=== PATIENT | male | born 1955 | race Caucasian/White ===

== ENCOUNTER 2016-03-10 00:31 | Emergency (ER) | payer SELFPAY ==
[~2016-03-10] VITALS: Ht 165.1 cm; Wt 81.8 kg
[2016-03-10] MEDS ORDERED: AMLO-512 PO (00:42)
[2016-03-10] MEDS ORDERED: METO25 PO (00:42)
[2016-03-10] MEDS ORDERED: GLIP5TAB11 PO (00:42)
[2016-03-10] MEDS ORDERED: METF850T2 PO (00:42)
[2016-03-10] MEDS ORDERED: LISI-662 PO (00:42)
[2016-03-10] MEDS ORDERED: LOVA20 PO (00:42)
[2016-03-10] MEDS ORDERED: LEVALBUTEROL HCL 1.25 MG/0.5 ML NEB SOLUTION NEB ONE (00:45)
[2016-03-10] MEDS ORDERED: IPRATROPIUM BROMIDE 0.5 MG/2.5 ML NEB SOLUTION NEB ONE (00:45)
[2016-03-10 00:55] LABS: GLUCOSE,POINT OF CARE 193 MG/DL (70-110)
[2016-03-10 01:07] LABS: BASOPHILS % (AUTO) 0.5 % (0.0-2.0); EOSINOPHILS % (AUTO) 2.4 % (1.0-6.0); HEMATOCRIT 39.4 % (41-53); HEMOGLOBIN 13.3 g/dL (13.5-17.5); LYMPHOCYTES # (AUTO) 2.4 K/uL (1.0-4.8); LYMPHOCYTES % (AUTO) 29.8 % (22.0-44.0); MEAN CORPUSCULAR HEMOGLOBIN 30.8 pg (26.0-34.0); MEAN CORPUSCULAR HGB CONC 33.8 G/dL (31.0-37.0); MEAN CORPUSCULAR VOLUME 91 fL (80-100); MONOCYTES # (AUTO) 0.4 K/uL (0.1-1.0); MONOCYTES % (AUTO) 5.3 % (2.0-9.0); NEUTROPHILS # (AUTO) 4.9 K/uL (1.8-7.7); PLATELET COUNT (AUTO) 201 K/uL (150-450); RED BLOOD CELL COUNT(AUTO) 4.33 MIL/uL (4.50-5.90); RED CELL DISTRIBUTION WIDTH 13.1 % (11.5-14.5); WHITE BLOOD COUNT (AUTO) 7.9 K/uL (4.5-11.0)
[2016-03-10 01:11] LABS: ANION GAP 7 mmol/L (8-16); CARBON DIOXIDE 28 mmol/L (22-29); CHLORIDE 101 mmol/L (98-107); CREATININE 1.13 mg/dL (0.60-1.30); GLOMERULAR FILTR. RATE CALC > 60 mL/min (>60); POTASSIUM 4.5 mmol/L (3.5-5.1); SODIUM SERUM 136 mmol/L (136-145); UREA NITROGEN, BLOOD 31 mg/dL (7-18)
[2016-03-10 01:15] LABS: PROTHROMBIN TIME 10.4 SEC (9.4-11.6)
[2016-03-10 01:16] LABS: ALANINE AMINOTRANSFERASE 30 U/L (12-78); ALBUMIN 3.5 g/dL (3.4-5.0); ASPARTATE AMINOTRANSFERASE 18 U/L (15-37); BILIRUBIN,TOTAL 0.3 mg/dL (0.1-1.0); TOTAL PROTEIN, SERUM 6.8 g/dL (6.4-8.2)
[2016-03-10] MEDS ORDERED: FUROSEMIDE 40 MG/4 ML VIAL IVP ONE (01:30)
[2016-03-10 03:13] VITALS: BP 150/70
[2016-06-21] MEDS ORDERED: SIMV-260 PO (12:42)
== END 2016-03-10 03:18 | disposition home or self-care (01) ==
LOC: EMS 00:34
DX: I11.0 Hypertensive heart disease with heart failure (principal); I50.9 Heart failure, unspecified; E11.9 Type 2 diabetes mellitus without complications; Z95.1 Presence of aortocoronary bypass graft
CPT/HCPCS: 36415; 71010; 80053; 82962; 83880; 84484; 85025; 85610; 93005; 94640; 96374; 99285; J1940; Z7610

== ENCOUNTER 2016-05-19 01:05 | Inpatient (IN) | payer SELFPAY ==
[~2016-05-19] VITALS: Ht 167.6 cm; Wt 79.5 kg
[~2016-05-19 01:05] MED LIST: AMLO-512 PO; GLIP5TAB11 PO; LISI-662 PO; LOVA20 PO; METF850T2 PO; METO25 PO
[2016-05-19] MEDS ORDERED: OXYGEN THERAPY IH SCH ×2 (01:15→08:00)
[2016-05-19 01:26] LABS: BASOPHILS % (AUTO) 0.6 % (0.0-2.0); EOSINOPHILS % (AUTO) 1.9 % (1.0-6.0); HEMATOCRIT 42.7 % (41-53); HEMOGLOBIN 13.9 g/dL (13.5-17.5); LYMPHOCYTES # (AUTO) 6.6 K/uL (1.0-4.8); LYMPHOCYTES % (AUTO) 44.2 % (22.0-44.0); MEAN CORPUSCULAR HEMOGLOBIN 30.2 pg (26.0-34.0); MEAN CORPUSCULAR HGB CONC 32.5 G/dL (31.0-37.0); MEAN CORPUSCULAR VOLUME 93 fL (80-100); MONOCYTES % (AUTO) 6.4 % (2.0-9.0); NEUTROPHILS % (AUTO) 46.9 % (40.0-70.0); PLATELET COUNT (AUTO) 229 K/uL (150-450); RED CELL DISTRIBUTION WIDTH 14.3 % (11.5-14.5)
[2016-05-19 01:29] LABS: ABG A-A DIFF O2 122.8 mmHg (10-20.0); ABG BASE EXCESS -3.1 mmol/L (-2.0-3.0); ABG HCO3 21.4 mmol/L (22.0-26.0); ABG OXYHEMOGLOBIN 95.1 % (94.0-100.0); ABG PCO2 53 mmHg (35-45); ABG PH 7.271 (7.35-7.450); ALLEN TEST, BLOOD GAS Positive; TEMPERATURE, FAHRENHEIT, BG 98.6 FAHREN (96.0-98.6)
[2016-05-19 01:30] LABS: IPAP, BG 16 cm H2O
[2016-05-19 01:47] LABS: B-TYPE NATRIURETIC PEPTIDE 397 pg/mL (0-100)
[2016-05-19 01:58] LABS: ANION GAP 12 mmol/L (8-16); CALCIUM, TOTAL 8.4 mg/dL (8.8-10.5); CARBON DIOXIDE 24 mmol/L (22-29); CHLORIDE 98 mmol/L (98-107); CREATININE 1.24 mg/dL (0.60-1.30); GLOMERULAR FILTR. RATE CALC 59 mL/min (>60); POTASSIUM 3.4 mmol/L (3.5-5.1); SODIUM SERUM 134 mmol/L (136-145); UREA NITROGEN, BLOOD 23 mg/dL (7-18)
[2016-05-19 02:03] LABS: ALANINE AMINOTRANSFERASE 33 U/L (12-78); ALBUMIN 3.6 g/dL (3.4-5.0); ASPARTATE AMINOTRANSFERASE 32 U/L (15-37); BILIRUBIN,TOTAL 0.4 mg/dL (0.1-1.0); TOTAL PROTEIN, SERUM 7.1 g/dL (6.4-8.2)
[2016-05-19 02:15] LABS: LACTIC ACID 3.5 mmol/L (0.4-2.0)
[2016-05-19] MEDS ORDERED: 0.9% SODIUM CHLORIDE 10 ML SYRINGE IVP PRN (02:45)
[2016-05-19] MEDS ORDERED: DIGOXIN 250 MCG/ML 2 ML AMP IVP ONE (02:45)
[2016-05-19] MEDS ORDERED: ASPIRIN 325 MG TABLET PO ONE (02:45)
[2016-05-19] MEDS ORDERED: ONDANSETRON HCL 4 MG/2 ML VIAL IVP PRN (02:45)
[2016-05-19] MEDS ORDERED: FUROSEMIDE 40 MG/4 ML VIAL IVP ONE ×2 (02:45→03:00)
[2016-05-19] MEDS ORDERED: ACETAMINOPHEN 325 MG TABLET PO PRN ×2 (02:45→06:45)
[2016-05-19 03:18] LABS: REFLEX LACTIC ACID? YES YES
[2016-05-19] MEDS ORDERED: IPRATROPIUM BROMIDE 0.5 MG/2.5 ML NEB SOLUTION NEB PRN (06:45)
[2016-05-19] MEDS ORDERED: BISACODYL 10 MG RECTAL RECTAL SUPPOSITORY PR PRN (06:45)
[2016-05-19] MEDS ORDERED: MAGNESIUM SULFATE 4 GM/WATER 100 ML IV PRN (06:45)
[2016-05-19] MEDS ORDERED: HYDROCODONE/ACETAMINOPHEN 5-325 MG TABLET PO PRN (06:45)
[2016-05-19] MEDS ORDERED: MORPHINE SULFATE 2 MG/ML SYRINGE IVP PRN (06:45)
[2016-05-19] MEDS ORDERED: MAGNESIUM SULFATE 2 GM in DEXTROSE 5%-WATER 50 ML IV PRN (06:45)
[2016-05-19] MEDS ORDERED: POTASSIUM CHLORIDE 20 MEQ ER TABLET PO PRN ×2 (06:45)
[2016-05-19] MEDS ORDERED: DEXTROSE 50%-WATER 25 GM/50 ML SYRINGE IVP PRN (06:45)
[2016-05-19] MEDS ORDERED: ALBUTEROL SULFATE 2.5 MG/0.5 ML NEB SOLUTION NEB PRN (06:45)
[2016-05-19] MEDS ORDERED: MAGNESIUM HYDROXIDE SUSPENSION 30 ML UDCUP PO PRN (06:45)
[2016-05-19] MEDS ORDERED: POTASSIUM CHL 10 MEQ/WATER 50 ML IV PRN (06:45)
[2016-05-19] MEDS ORDERED: ZOLPIDEM TARTRATE 5 MG TABLET PO PRN (06:45)
[2016-05-19] MEDS: AmLODIPine BESYLATE 10 MG TABLET PO SCH (08:34)
[2016-05-19] MEDS: HEPARIN SODIUM,PORCINE 5,000 UNITS/ML VIAL SQ SCH ×2 (08:34→20:58)
[2016-05-19] MEDS: MetFORMIN HCL 850 MG TABLET PO SCH ×3 (08:34→18:00)
[2016-05-19] MEDS: METOPROLOL TARTRATE 25 MG TABLET PO SCH ×2 (08:34→20:57)
[2016-05-19] MEDS: GlipiZIDE 5 MG TABLET PO SCH (08:34)
[2016-05-19] MEDS: INSULIN ASPART 100 UNITS/ML SQ PRN ×2 (08:35→11:42)
[2016-05-19 08:36] LABS: GLUCOSE,POINT OF CARE 196 MG/DL (70-110)
[2016-05-19 10:04] LABS: APPEARANCE,URINE CLEAR (CLEAR); GLUCOSE, URINE (UA) NEGATIVE (NEGATIVE); KETONES,URINE NEGATIVE (NEGATIVE); LEUKOCYTE ESTERASE ,URINE NEGATIVE (NEGATIVE); OCCULT BLOOD,URINE TRACE (NEGATIVE); PROTEIN,URINE TRACE (NEGATIVE)
[2016-05-19 10:14] LABS: RBC,URINE 0-2 /HPF (0-2); WBC,URINE 0-2 /HPF (0-5)
[2016-05-19 10:15] LABS: SQUAMOUS EPITHELIAL CELL,UR Few /LPF (None Seen)
[2016-05-19 11:43] LABS: GLUCOSE,POINT OF CARE 172 MG/DL (70-110)
[2016-05-19 12:12] LABS: ANION GAP 10 mmol/L (8-16); CALCIUM, TOTAL 8.6 mg/dL (8.8-10.5); CARBON DIOXIDE 28 mmol/L (22-29); CHLORIDE 99 mmol/L (98-107); CREATININE 1.15 mg/dL (0.60-1.30); GLOMERULAR FILTR. RATE CALC > 60 mL/min (>60); POTASSIUM 3.9 mmol/L (3.5-5.1); SODIUM SERUM 137 mmol/L (136-145); UREA NITROGEN, BLOOD 25 mg/dL (7-18)
[2016-05-19 12:57] VITALS: BP 144/81
[2016-05-19 15:14] VITALS: BP 120/86
[2016-05-19] MEDS: MAGNESIUM OXIDE 400 MG TABLET PO PRN ×2 (18:00→22:04)
[2016-05-19] MEDS ORDERED: PNEUMOCOCCAL VACCINE POLYVALENT 0.5 ML VIAL [PPSV23] IM ONE (19:15)
[2016-05-19 19:47] VITALS: BP 140/71
[2016-05-19] MEDS: LOVASTATIN 20 MG TABLET PO SCH (20:57)
[2016-05-19 23:51] VITALS: BP 137/81
[2016-05-20] MEDS: MAGNESIUM OXIDE 400 MG TABLET PO PRN (03:23)
[2016-05-20 04:56] VITALS: BP 121/74
[2016-05-20 06:23] LABS: BASOPHILS % (AUTO) 0.5 % (0.0-2.0); EOSINOPHILS % (AUTO) 2.2 % (1.0-6.0); HEMATOCRIT 37.6 % (41-53); HEMOGLOBIN 12.4 g/dL (13.5-17.5); LYMPHOCYTES # (AUTO) 2.9 K/uL (1.0-4.8); LYMPHOCYTES % (AUTO) 39.6 % (22.0-44.0); MEAN CORPUSCULAR HEMOGLOBIN 30.4 pg (26.0-34.0); MEAN CORPUSCULAR HGB CONC 32.9 G/dL (31.0-37.0); MEAN CORPUSCULAR VOLUME 92 fL (80-100); MONOCYTES # (AUTO) 0.5 K/uL (0.1-1.0); MONOCYTES % (AUTO) 7.5 % (2.0-9.0); NEUTROPHILS # (AUTO) 3.7 K/uL (1.8-7.7); NEUTROPHILS % (AUTO) 50.2 % (40.0-70.0); PLATELET COUNT (AUTO) 172 K/uL (150-450); RED BLOOD CELL COUNT(AUTO) 4.07 MIL/uL (4.50-5.90); RED CELL DISTRIBUTION WIDTH 14.2 % (11.5-14.5); WHITE BLOOD COUNT (AUTO) 7.4 K/uL (4.5-11.0)
[2016-05-20 06:28] LABS: HEMOGLOBIN A1C 8.1 % (4.5-6.2)
[2016-05-20] MEDS: GlipiZIDE 5 MG TABLET PO SCH (06:47)
[2016-05-20 06:52] LABS: ALANINE AMINOTRANSFERASE 25 U/L (12-78); ALBUMIN 3.1 g/dL (3.4-5.0); ANION GAP 6 mmol/L (8-16); ASPARTATE AMINOTRANSFERASE 23 U/L (15-37); BILIRUBIN,TOTAL 0.4 mg/dL (0.1-1.0); CALCIUM, TOTAL 8.5 mg/dL (8.8-10.5); CARBON DIOXIDE 29 mmol/L (22-29); CHLORIDE 106 mmol/L (98-107); CHOL/HDL RATIO 3.9 (4.2-7.3); CREATININE 0.95 mg/dL (0.60-1.30); GLOMERULAR FILTR. RATE CALC > 60 mL/min (>60); PHOSPHORUS 3.6 mg/dL (2.5-4.9); POTASSIUM 4.2 mmol/L (3.5-5.1); SODIUM SERUM 141 mmol/L (136-145); THYROID STIMULATING HORMONE 2.06 uIU/mL (0.36-3.74); UREA NITROGEN, BLOOD 20 mg/dL (7-18)
[2016-05-20 07:08] VITALS: BP 128/74
[2016-05-20 07:26] LABS: GLUCOSE,POINT OF CARE 124 MG/DL (70-110)
[2016-05-20 07:26] LABS: GLUCOSE,POINT OF CARE 102 MG/DL (70-110)
[2016-05-20] MEDS: MetFORMIN HCL 850 MG TABLET PO SCH ×3 (08:04→18:00)
[2016-05-20] MEDS: AmLODIPine BESYLATE 10 MG TABLET PO SCH (08:04)
[2016-05-20] MEDS: METOPROLOL TARTRATE 25 MG TABLET PO SCH ×2 (08:04→20:46)
[2016-05-20] MEDS: HEPARIN SODIUM,PORCINE 5,000 UNITS/ML VIAL SQ SCH ×2 (08:05→20:46)
[2016-05-20 11:23] VITALS: BP 137/82
[2016-05-20 12:12] LABS: GLUCOSE,POINT OF CARE 74 MG/DL (70-110)
[2016-05-20 15:27] VITALS: BP 131/69
[2016-05-20 19:56] VITALS: BP 151/80
[2016-05-20] MEDS: LOVASTATIN 20 MG TABLET PO SCH (20:46)
[2016-05-20 23:22] VITALS: BP 145/78
[2016-05-21] VITALS (11 sets, daily range): BP systolic 132–188; BP diastolic 66–98
[2016-05-21] MEDS: GlipiZIDE 5 MG TABLET PO SCH (06:20)
[2016-05-21 07:22] LABS: GLUCOSE,POINT OF CARE 212 MG/DL (70-110)
[2016-05-21 07:22] LABS: GLUCOSE,POINT OF CARE 135 MG/DL (70-110)
[2016-05-21 07:31] LABS: GLUCOSE,POINT OF CARE 135 MG/DL (70-110)
[2016-05-21] MEDS: MetFORMIN HCL 850 MG TABLET PO SCH (08:00)
[2016-05-21] MEDS ORDERED: VERAPAMIL HCL 2.5 MG/ML 2 ML VIAL ONE (08:21)
[2016-05-21] MEDS ORDERED: FentaNYL CITRATE-PF 100 MCG/2 ML VIAL ONE ×2 (08:21→10:31)
[2016-05-21] MEDS ORDERED: MIDAZOLAM HCL 2 MG/2 ML VIAL ONE ×2 (08:21→10:32)
[2016-05-21] MEDS ORDERED: SODIUM BICARBONATE 50 MEQ/50 ML VIAL ONE (08:22)
[2016-05-21] MEDS ORDERED: LIDOCAINE HCL/PF 1% 30 ML VIAL ONE (08:22)
[2016-05-21] MEDS ORDERED: NITROGLYCERIN 50 MG/D5% WATER 250 ML ONE (08:22)
[2016-05-21] MEDS ORDERED: HEPARIN SODIUM,PORCINE 1,000 UNITS/ML 10 ML VIAL ONE (08:22)
[2016-05-21] MEDS ORDERED: HEPARIN SODIUM 1000 UNITS/NS 1,000 ML ONE (08:23)
[2016-05-21] MEDS: METOPROLOL TARTRATE 25 MG TABLET PO SCH ×2 (08:23→21:03)
[2016-05-21] MEDS ORDERED: IOHEXOL 300 MG/ML 150 ML VIAL ONE ×2 (08:23→09:26)
[2016-05-21] MEDS: AmLODIPine BESYLATE 10 MG TABLET PO SCH (08:23)
[2016-05-21] MEDS: HEPARIN SODIUM,PORCINE 5,000 UNITS/ML VIAL SQ SCH ×2 (08:24→21:04)
[2016-05-21] MEDS ORDERED: SODIUM CHLORIDE 0.9% 500 ML IV ONE (09:05)
[2016-05-21] MEDS ORDERED: LIDOCAINE 1% 30 ML/SOD BICARB 8.4% 4 ML SQ ONE (09:11)
[2016-05-21] MEDS ORDERED: HEPARIN SODIUM 2,000 UNITS in HEPARIN SODIUM 1000 UNITS/NS 1,000 ML IARTER ONE (09:11)
[2016-05-21] MEDS ORDERED: IOHEXOL 300 MG/ML 150 ML VIAL IARTER ONE ×2 (09:12)
[2016-05-21] MEDS ORDERED: IOHEXOL 300 MG/ML 100 ML VIAL ICOR ONE (09:12)
[2016-05-21] MEDS ORDERED: IOHEXOL 300 MG/ML 100 ML VIAL ONE ×2 (09:15→10:10)
[2016-05-21] MEDS ORDERED: IOHEXOL 300 MG/ML 50 ML VIAL ONE (09:35)
[2016-05-21] MEDS ORDERED: HEPARIN SODIUM,PORCINE 5,000 UNITS/ML VIAL IVP ONE (09:37)
[2016-05-21] MEDS ORDERED: TICAGRELOR 90 MG TABLET PO ONE (09:39)
[2016-05-21] MEDS ORDERED: ASPIRIN 81 MG CHEWABLE TABLET ONE (09:40)
[2016-05-21] MEDS ORDERED: TICAGRELOR 90 MG TABLET ONE (09:40)
[2016-05-21] MEDS ORDERED: IOHEXOL 300 MG/ML 50 ML VIAL ICOR ONE (09:41)
[2016-05-21] MEDS ORDERED: HEPARIN SODIUM 1000 UNITS/NS 500 ML ONE ×3 (09:42→11:09)
[2016-05-21] MEDS ORDERED: ASPIRIN 81 MG CHEWABLE TABLET PO ONE (09:45)
[2016-05-21] MEDS ORDERED: FUROSEMIDE 40 MG/4 ML VIAL ONE ×2 (09:55→10:01)
[2016-05-21] MEDS ORDERED: FUROSEMIDE 40 MG/4 ML VIAL IVP ONE ×2 (10:00→10:53)
[2016-05-21] MEDS ORDERED: ONDANSETRON HCL 4 MG/2 ML VIAL IVP ONE (10:04)
[2016-05-21] MEDS ORDERED: ONDANSETRON HCL 4 MG/2 ML VIAL ONE (10:07)
[2016-05-21] MEDS ORDERED: NITROGLYCERIN/D5W 50 MG/250 ML IV BOTTLE ICOR ONE (10:11)
[2016-05-21] MEDS ORDERED: VERAPAMIL HCL 2.5 MG/ML 2 ML VIAL ICOR ONE (10:11)
[2016-05-21] MEDS: CARVEDILOL 6.25 MG TABLET PO SCH ×2 (13:01→21:03)
[2016-05-21] MEDS: LISINOPRIL 20 MG TABLET PO SCH (13:01)
[2016-05-21 13:08] LABS: CREATINE KINASE MB 2.5 ng/mL (0-5); CREATINE KINASE, TOTAL 86 U/L (39-308)
[2016-05-21] MEDS ORDERED: HydrALAZINE HCL 20 MG/ML VIAL IVP PRN (14:45)
[2016-05-21 17:42] LABS: GLUCOSE COMMENT 1 Received Meds; GLUCOSE,POINT OF CARE 163 MG/DL (70-110)
[2016-05-21] MEDS: INSULIN ASPART 100 UNITS/ML SQ PRN (17:48)
[2016-05-21] MEDS: FUROSEMIDE 40 MG/4 ML VIAL IVP SCH (21:04)
[2016-05-21 22:41] LABS: GLUCOSE COMMENT 1 Received Meds; GLUCOSE,POINT OF CARE 138 MG/DL (70-110)
[2016-05-21] MEDS: LOVASTATIN 20 MG TABLET PO SCH (22:41)
[2016-05-21] MEDS: TICAGRELOR 90 MG TABLET PO SCH (22:41)
[2016-05-22] VITALS: BP 120/58
[2016-05-22 04:00] VITALS: BP 121/61
[2016-05-22] MEDS: GlipiZIDE 5 MG TABLET PO SCH (06:40)
[2016-05-22] MEDS: INSULIN ASPART 100 UNITS/ML SQ PRN ×3 (06:41→21:11)
[2016-05-22 08:00] VITALS: BP 116/61
[2016-05-22] MEDS: FUROSEMIDE 40 MG/4 ML VIAL IVP SCH ×2 (09:30→20:50)
[2016-05-22] MEDS: HEPARIN SODIUM,PORCINE 5,000 UNITS/ML VIAL SQ SCH ×2 (09:30→20:51)
[2016-05-22] MEDS: TICAGRELOR 90 MG TABLET PO SCH ×2 (09:31→20:50)
[2016-05-22] MEDS: ASPIRIN 81 MG CHEWABLE TABLET PO SCH (09:31)
[2016-05-22] MEDS: CARVEDILOL 6.25 MG TABLET PO SCH ×2 (09:31→20:50)
[2016-05-22] MEDS: METOPROLOL TARTRATE 25 MG TABLET PO SCH ×2 (09:31→20:50)
[2016-05-22] MEDS: LISINOPRIL 20 MG TABLET PO SCH (09:31)
[2016-05-22] MEDS: AmLODIPine BESYLATE 10 MG TABLET PO SCH (09:34)
[2016-05-22 09:43] LABS: POTASSIUM 4.1 mmol/L (3.5-5.1)
[2016-05-22 10:02] LABS: GLUCOSE COMMENT 1 Received Meds; GLUCOSE,POINT OF CARE 210 MG/DL (70-110)
[2016-05-22] MEDS ORDERED: 0.9% SODIUM CHLORIDE 10 ML SYRINGE IVP PRN (10:45)
[2016-05-22 12:00] VITALS: BP 149/83
[2016-05-22 16:00] VITALS: BP 110/71
[2016-05-22 17:27] LABS: GLUCOSE COMMENT 1 Received Meds; GLUCOSE,POINT OF CARE 214 MG/DL (70-110)
[2016-05-22 20:00] VITALS: BP 156/85
[2016-05-22] MEDS: LOVASTATIN 20 MG TABLET PO SCH (20:50)
[2016-05-23] VITALS: BP 105/54
[2016-05-23 04:00] VITALS: BP 116/63
[2016-05-23 04:37] LABS: GLUCOSE,POINT OF CARE 257 MG/DL (70-110)
[2016-05-23 04:37] LABS: GLUCOSE,POINT OF CARE 110 MG/DL (70-110)
[2016-05-23] MEDS: GlipiZIDE 5 MG TABLET PO SCH (06:35)
[2016-05-23] MEDS: INSULIN ASPART 100 UNITS/ML SQ PRN (06:37)
[2016-05-23 06:47] LABS: GLUCOSE COMMENT 1 Received Meds; GLUCOSE,POINT OF CARE 145 MG/DL (70-110)
[2016-05-23 08:00] VITALS: BP 112/75
[2016-05-23] MEDS: HEPARIN SODIUM,PORCINE 5,000 UNITS/ML VIAL SQ SCH (08:51)
[2016-05-23] MEDS: FUROSEMIDE 40 MG/4 ML VIAL IVP SCH (08:51)
[2016-05-23] MEDS: TICAGRELOR 90 MG TABLET PO SCH (08:52)
[2016-05-23] MEDS: AmLODIPine BESYLATE 10 MG TABLET PO SCH (08:52)
[2016-05-23] MEDS: ASPIRIN 81 MG CHEWABLE TABLET PO SCH (08:52)
[2016-05-23] MEDS: LISINOPRIL 20 MG TABLET PO SCH (08:52)
[2016-05-23] MEDS: METOPROLOL TARTRATE 25 MG TABLET PO SCH (08:53)
[2016-05-23] MEDS: CARVEDILOL 6.25 MG TABLET PO SCH (08:53)
[2016-05-23 09:17] LABS: GLUCOSE,POINT OF CARE 275 MG/DL (70-110)
[2016-05-23] MEDS ORDERED: AMIL5TAB8 PO (09:54)
[2016-06-21] MEDS ORDERED: SIMV-260 PO (12:42)
== END 2016-05-23 11:10 | disposition home or self-care (01) | DRG 853 ==
LOC: EMS 01:06 → 5N 11:11 → ICU 05-21 10:46
PROVIDERS: ADMIT Internal Medicine; ATTEND Internal Medicine
PROC: 3E0234Z Introduction of Serum, Toxoid and Vaccine into Muscle, Percutaneous Approach (ICD-10-PCS; 2016-05-19)
PROC: 5A09357 Assistance with Respiratory Ventilation, Less than 24 Consecutive Hours, Continuous Positive Airway Pressure (ICD-10-PCS; 2016-05-19)
PROC: 027137Z Dilation of Coronary Artery, Two Arteries with Four or More Drug-eluting Intraluminal Devices, Percutaneous Approach (ICD-10-PCS; principal; 2016-05-21)
PROC: 4A023N7 Measurement of Cardiac Sampling and Pressure, Left Heart, Percutaneous Approach (ICD-10-PCS; 2016-05-21)
PROC: B2111ZZ Fluoroscopy of Multiple Coronary Arteries using Low Osmolar Contrast (ICD-10-PCS; 2016-05-21)
PROC: B2181ZZ Fluoroscopy of Left Internal Mammary Bypass Graft using Low Osmolar Contrast (ICD-10-PCS; 2016-05-21)
PROC: B2131ZZ Fluoroscopy of Multiple Coronary Artery Bypass Grafts using Low Osmolar Contrast (ICD-10-PCS; 2016-05-21)
PROC: B2151ZZ Fluoroscopy of Left Heart using Low Osmolar Contrast (ICD-10-PCS; 2016-05-21)
DX: A41.9 Sepsis, unspecified organism (principal); J96.01 Acute respiratory failure with hypoxia; I21.4 Non-ST elevation (NSTEMI) myocardial infarction; E87.1 Hypo-osmolality and hyponatremia; I25.810 Atherosclerosis of coronary artery bypass graft(s) without angina pectoris; Y90.0 Blood alcohol level of less than 20 mg/100 ml; I11.0 Hypertensive heart disease with heart failure; I50.9 Heart failure, unspecified; I44.7 Left bundle-branch block, unspecified; E11.65 Type 2 diabetes mellitus with hyperglycemia; I25.5 Ischemic cardiomyopathy; E78.5 Hyperlipidemia, unspecified; E83.51 Hypocalcemia; E87.6 Hypokalemia; F10.10 Alcohol abuse, uncomplicated; I48.0 Paroxysmal atrial fibrillation; Z79.84 Long term (current) use of oral hypoglycemic drugs; Z79.899 Other long term (current) drug therapy; Z95.1 Presence of aortocoronary bypass graft; Z71.41 Alcohol abuse counseling and surveillance of alcoholic; Z23 Encounter for immunization
CPT/HCPCS: 82306; 82805; 82962; 83036; 83605; 83735; 84100; 84132; 84443; 87040; 87081; 92920; 92921; 92928; 92981; 93005; 93306; 93459; 93567; 94660; 99285; G0480; J0360; J1160; J1644; J1815; J1940; J2250; J2405; J3010; J3490; Q9967

== ENCOUNTER 2016-05-26 13:53 | Inpatient (IN) | payer SELFPAY ==
[~2016-05-26] VITALS: Ht 167.6 cm; Wt 75.9 kg
[~2016-05-26 13:53] MED LIST changes: +AMIL5TAB8 PO
[2016-05-26 16:18] LABS: BASOPHILS % (AUTO) 0.2 % (0.0-2.0); EOSINOPHILS % (AUTO) 0.7 % (1.0-6.0); HEMATOCRIT 41.5 % (41-53); HEMOGLOBIN 13.8 g/dL (13.5-17.5); LYMPHOCYTES # (AUTO) 1.1 K/uL (1.0-4.8); LYMPHOCYTES % (AUTO) 11.5 % (22.0-44.0); MEAN CORPUSCULAR HEMOGLOBIN 30.4 pg (26.0-34.0); MEAN CORPUSCULAR HGB CONC 33.2 G/dL (31.0-37.0); MEAN CORPUSCULAR VOLUME 92 fL (80-100); MONOCYTES # (AUTO) 0.3 K/uL (0.1-1.0); MONOCYTES % (AUTO) 3.6 % (2.0-9.0); NEUTROPHILS # (AUTO) 7.8 K/uL (1.8-7.7); PLATELET COUNT (AUTO) 252 K/uL (150-450); RED BLOOD CELL COUNT(AUTO) 4.53 MIL/uL (4.50-5.90); RED CELL DISTRIBUTION WIDTH 13.7 % (11.5-14.5); WHITE BLOOD COUNT (AUTO) 9.3 K/uL (4.5-11.0)
[2016-05-26 16:23] LABS: INR 0.9 (0.9-1.1)
[2016-05-26 16:27] LABS: ANION GAP 10 mmol/L (8-16); CALCIUM, TOTAL 9.2 mg/dL (8.8-10.5); CARBON DIOXIDE 27 mmol/L (22-29); CHLORIDE 98 mmol/L (98-107); GLOMERULAR FILTR. RATE CALC > 60 mL/min (>60); SODIUM SERUM 135 mmol/L (136-145); UREA NITROGEN, BLOOD 49 mg/dL (7-18)
[2016-05-26 17:00] LABS: B-TYPE NATRIURETIC PEPTIDE 78 pg/mL (0-100)
[2016-05-26 17:01] LABS: ALANINE AMINOTRANSFERASE 40 U/L (12-78); ALBUMIN 3.8 g/dL (3.4-5.0); ASPARTATE AMINOTRANSFERASE 47 U/L (15-37); BILIRUBIN,TOTAL 0.4 mg/dL (0.1-1.0); CREATINE KINASE MB 9.8 ng/mL (0-5); CREATINE KINASE, TOTAL 209 U/L (39-308)
[2016-05-26] MEDS ORDERED: ASPIRIN 81 MG CHEWABLE TABLET PO ONE (18:00)
[2016-05-26] MEDS ORDERED: NITROGLYCERIN 2% (1 GM=INCH) PACKET TP ONE (18:00)
[2016-05-26] MEDS ORDERED: ONDANSETRON HCL 4 MG/2 ML VIAL IVP PRN (18:15)
[2016-05-26] MEDS ORDERED: ACETAMINOPHEN 325 MG TABLET PO PRN (18:15)
[2016-05-26] MEDS ORDERED: 0.9% SODIUM CHLORIDE 10 ML SYRINGE IVP PRN (18:15)
[2016-05-26 20:41] VITALS: BP 133/78
[2016-05-27] VITALS (11 sets, daily range): BP systolic 96–156; BP diastolic 61–88
[2016-05-27 06:00] LABS: BASOPHILS % (AUTO) 0.2 % (0.0-2.0); EOSINOPHILS % (AUTO) 0.8 % (1.0-6.0); HEMATOCRIT 40.1 % (41-53); HEMOGLOBIN 13.3 g/dL (13.5-17.5); LYMPHOCYTES # (AUTO) 1.5 K/uL (1.0-4.8); LYMPHOCYTES % (AUTO) 12.4 % (22.0-44.0); MEAN CORPUSCULAR HEMOGLOBIN 30.2 pg (26.0-34.0); MEAN CORPUSCULAR VOLUME 91 fL (80-100); MONOCYTES # (AUTO) 0.8 K/uL (0.1-1.0); MONOCYTES % (AUTO) 6.7 % (2.0-9.0); NEUTROPHILS # (AUTO) 9.5 K/uL (1.8-7.7); NEUTROPHILS % (AUTO) 79.9 % (40.0-70.0); PLATELET COUNT (AUTO) 251 K/uL (150-450); RED BLOOD CELL COUNT(AUTO) 4.39 MIL/uL (4.50-5.90); RED CELL DISTRIBUTION WIDTH 14.1 % (11.5-14.5); WHITE BLOOD COUNT (AUTO) 11.9 K/uL (4.5-11.0)
[2016-05-27] MEDS ORDERED: DEXTROSE 50%-WATER 25 GM/50 ML SYRINGE IVP PRN (07:15)
[2016-05-27 07:24] LABS: ALANINE AMINOTRANSFERASE 61 U/L (12-78); ALBUMIN 3.5 g/dL (3.4-5.0); ANION GAP 10 mmol/L (8-16); ASPARTATE AMINOTRANSFERASE 344 U/L (15-37); BILIRUBIN,TOTAL 0.6 mg/dL (0.1-1.0); CALCIUM, TOTAL 8.7 mg/dL (8.8-10.5); CARBON DIOXIDE 25 mmol/L (22-29); CHLORIDE 100 mmol/L (98-107); CREATININE 0.98 mg/dL (0.60-1.30); GLOMERULAR FILTR. RATE CALC > 60 mL/min (>60); POTASSIUM 4.7 mmol/L (3.5-5.1); SODIUM SERUM 135 mmol/L (136-145); UREA NITROGEN, BLOOD 37 mg/dL (7-18)
[2016-05-27] MEDS ORDERED: MORPHINE SULFATE 2 MG/ML SYRINGE IVP PRN (07:45)
[2016-05-27] MEDS: AmLODIPine BESYLATE 10 MG TABLET PO SCH (08:50)
[2016-05-27] MEDS: LISINOPRIL 20 MG TABLET PO SCH ×2 (08:51→20:42)
[2016-05-27] MEDS: AMILoride HCL 5 MG TABLET PO SCH (08:51)
[2016-05-27] MEDS ORDERED: METOPROLOL TARTRATE 25 MG TABLET PO SCH (09:00)
[2016-05-27] MEDS ORDERED: ASPIRIN 325 MG TABLET PO ONE (10:30)
[2016-05-27] MEDS ORDERED: TICAGRELOR 90 MG TABLET PO ONE (10:30)
[2016-05-27] MEDS ORDERED: HEPARIN SODIUM 25000 UNITS/D5W 250 ML IV SCH (10:30)
[2016-05-27] MEDS ORDERED: HEPARIN SODIUM 25000 UNITS/D5W 250 ML IV PRN (10:37)
[2016-05-27] MEDS ORDERED: HEPARIN SODIUM,PORCINE 5,000 UNITS/ML VIAL IVP ONE ×2 (10:45→12:45)
[2016-05-27] MEDS ORDERED: HEPARIN SODIUM,PORCINE 5,000 UNITS/ML VIAL IVP PRN ×2 (10:45)
[2016-05-27 11:03] LABS: BASOPHILS % (AUTO) 0.4 % (0.0-2.0); EOSINOPHILS % (AUTO) 0.3 % (1.0-6.0); HEMATOCRIT 41.1 % (41-53); HEMOGLOBIN 13.7 g/dL (13.5-17.5); LYMPHOCYTES # (AUTO) 1.4 K/uL (1.0-4.8); LYMPHOCYTES % (AUTO) 10.6 % (22.0-44.0); MEAN CORPUSCULAR HEMOGLOBIN 30.3 pg (26.0-34.0); MEAN CORPUSCULAR HGB CONC 33.3 G/dL (31.0-37.0); MEAN CORPUSCULAR VOLUME 91 fL (80-100); MONOCYTES # (AUTO) 0.8 K/uL (0.1-1.0); MONOCYTES % (AUTO) 6.1 % (2.0-9.0); NEUTROPHILS # (AUTO) 11.2 K/uL (1.8-7.7); NEUTROPHILS % (AUTO) 82.6 % (40.0-70.0); PLATELET COUNT (AUTO) 279 K/uL (150-450); RED BLOOD CELL COUNT(AUTO) 4.51 MIL/uL (4.50-5.90); RED CELL DISTRIBUTION WIDTH 14.3 % (11.5-14.5); WHITE BLOOD COUNT (AUTO) 13.6 K/uL (4.5-11.0)
[2016-05-27 11:14] LABS: PROTHROMBIN TIME 10.6 SEC (9.4-11.6)
[2016-05-27] MEDS ORDERED: SODIUM BICARBONATE 50 MEQ/50 ML VIAL ONE (11:35)
[2016-05-27] MEDS ORDERED: LIDOCAINE HCL/PF 1% 30 ML VIAL ONE (11:35)
[2016-05-27] MEDS ORDERED: IOHEXOL 300 MG/ML 150 ML VIAL ONE (11:35)
[2016-05-27] MEDS ORDERED: HEPARIN SODIUM 1000 UNITS/NS 1,000 ML ONE (11:36)
[2016-05-27] MEDS: NITROGLYCERIN 2% (1 GM=INCH) PACKET TP SCH ×2 (12:00→17:58)
[2016-05-27] MEDS ORDERED: MIDAZOLAM HCL 2 MG/2 ML VIAL ONE (12:07)
[2016-05-27] MEDS ORDERED: FentaNYL CITRATE-PF 100 MCG/2 ML VIAL ONE (12:07)
[2016-05-27] MEDS ORDERED: VERAPAMIL HCL 2.5 MG/ML 2 ML VIAL ONE (12:12)
[2016-05-27] MEDS ORDERED: NITROGLYCERIN 50 MG/D5% WATER 250 ML ONE (12:12)
[2016-05-27] MEDS: EPTIFIBATIDE 75 MG/ISO-OSM 100 ML IV SCH ×3 (12:21→14:00)
[2016-05-27] MEDS ORDERED: SODIUM CHLORIDE 0.9% 500 ML IV ONE (12:33)
[2016-05-27] MEDS ORDERED: HEPARIN SODIUM 1000 UNITS/NS 1,000 ML IARTER ONE (12:33)
[2016-05-27] MEDS ORDERED: LIDOCAINE 1% 30 ML/SOD BICARB 8.4% 4 ML SQ ONE (12:45)
[2016-05-27] MEDS ORDERED: IOHEXOL 300 MG/ML 150 ML VIAL IARTER ONE (12:45)
[2016-05-27] MEDS ORDERED: IOHEXOL 300 MG/ML 100 ML VIAL ONE (13:22)
[2016-05-27] MEDS ORDERED: EPTIFIBATIDE 75 MG/ISO-OSM 100 ML IV ONE (13:23)
[2016-05-27] MEDS ORDERED: EPTIFIBATIDE 2 MG/ML 10 ML VIAL IVP ONE ×2 (13:23→13:45)
[2016-05-27] MEDS ORDERED: NITROGLYCERIN/D5W 50 MG/250 ML IV BOTTLE ICOR ONE (13:30)
[2016-05-27] MEDS ORDERED: VERAPAMIL HCL 2.5 MG/ML 2 ML VIAL ICOR ONE (13:30)
[2016-05-27] MEDS ORDERED: IOHEXOL 300 MG/ML 100 ML VIAL IARTER ONE (13:30)
[2016-05-27 15:24] LABS: MAGNESIUM 2.1 mg/dL (1.80-2.40); PHOSPHORUS 3.1 mg/dL (2.5-4.9)
[2016-05-27 16:37] LABS: GLUCOSE,POINT OF CARE 327 MG/DL (70-110)
[2016-05-27] MEDS: INSULIN ASPART 100 UNITS/ML SQ PRN ×2 (18:01→20:44)
[2016-05-27] MEDS ORDERED: FUROSEMIDE 40 MG/4 ML VIAL IVP ONE (18:45)
[2016-05-27] MEDS: METOPROLOL TARTRATE 25 MG TABLET PO SCH (20:42)
[2016-05-27] MEDS ORDERED: LOVASTATIN 20 MG TABLET PO SCH (21:00)
[2016-05-27] MEDS: TICAGRELOR 90 MG TABLET PO SCH (21:29)
[2016-05-27] MEDS: ATORVASTATIN CALCIUM 40 MG TABLET PO SCH (21:29)
[2016-05-28] VITALS (8 sets, daily range): BP systolic 97–123; BP diastolic 60–84
[2016-05-28] MEDS: NITROGLYCERIN 2% (1 GM=INCH) PACKET TP SCH ×4 (01:03→18:18)
[2016-05-28] MEDS: INSULIN ASPART 100 UNITS/ML SQ PRN ×4 (06:18→21:51)
[2016-05-28 08:32] LABS: BASOPHILS % (AUTO) 0.2 % (0.0-2.0); EOSINOPHILS % (AUTO) 0.5 % (1.0-6.0); HEMATOCRIT 36.4 % (41-53); LYMPHOCYTES # (AUTO) 1.3 K/uL (1.0-4.8); LYMPHOCYTES % (AUTO) 9.3 % (22.0-44.0); MEAN CORPUSCULAR HEMOGLOBIN 30.6 pg (26.0-34.0); MEAN CORPUSCULAR VOLUME 93 fL (80-100); MONOCYTES % (AUTO) 7.5 % (2.0-9.0); NEUTROPHILS # (AUTO) 11.2 K/uL (1.8-7.7); NEUTROPHILS % (AUTO) 82.5 % (40.0-70.0); PLATELET COUNT (AUTO) 245 K/uL (150-450); RED BLOOD CELL COUNT(AUTO) 3.93 MIL/uL (4.50-5.90); RED CELL DISTRIBUTION WIDTH 14.4 % (11.5-14.5); WHITE BLOOD COUNT (AUTO) 13.6 K/uL (4.5-11.0)
[2016-05-28 08:52] LABS: CALCIUM, TOTAL 8.5 mg/dL (8.8-10.5); CREATININE 1.23 mg/dL (0.60-1.30)
[2016-05-28] MEDS: TICAGRELOR 90 MG TABLET PO SCH ×2 (09:20→21:44)
[2016-05-28] MEDS: METOPROLOL TARTRATE 25 MG TABLET PO SCH ×2 (09:20→21:44)
[2016-05-28] MEDS: LISINOPRIL 20 MG TABLET PO SCH ×2 (09:20→21:44)
[2016-05-28] MEDS: AmLODIPine BESYLATE 10 MG TABLET PO SCH (09:20)
[2016-05-28] MEDS: ASPIRIN 81 MG CHEWABLE TABLET PO SCH (09:21)
[2016-05-28] MEDS: AMILoride HCL 5 MG TABLET PO SCH (09:23)
[2016-05-28 13:42] LABS: GLUCOSE COMMENT 1 Received Meds; GLUCOSE,POINT OF CARE 273 MG/DL (70-110)
[2016-05-28 20:12] LABS: GLUCOSE,POINT OF CARE 221 MG/DL (70-110)
[2016-05-28] MEDS: ATORVASTATIN CALCIUM 40 MG TABLET PO SCH (21:44)
[2016-05-29 03:37] LABS: GLUCOSE COMMENT 1 Received Meds; GLUCOSE,POINT OF CARE 243 MG/DL (70-110)
[2016-05-29 04:35] VITALS: BP 99/61
[2016-05-29] MEDS: NITROGLYCERIN 2% (1 GM=INCH) PACKET TP SCH ×3 (06:00→12:00)
[2016-05-29 06:28] LABS: ANION GAP 9 mmol/L (8-16); CALCIUM, TOTAL 8.4 mg/dL (8.8-10.5); CARBON DIOXIDE 23 mmol/L (22-29); CHLORIDE 98 mmol/L (98-107); CREATININE 1.21 mg/dL (0.60-1.30); GLOMERULAR FILTR. RATE CALC > 60 mL/min (>60); POTASSIUM 5.2 mmol/L (3.5-5.1); SODIUM SERUM 130 mmol/L (136-145); UREA NITROGEN, BLOOD 38 mg/dL (7-18)
[2016-05-29 06:32] LABS: GLUCOSE COMMENT 1 Received Meds; GLUCOSE,POINT OF CARE 237 MG/DL (70-110)
[2016-05-29 06:33] LABS: GLUCOSE COMMENT 1 Received Meds; GLUCOSE,POINT OF CARE 220 MG/DL (70-110)
[2016-05-29 06:56] LABS: BASOPHILS % (AUTO) 0.3 % (0.0-2.0); EOSINOPHILS % (AUTO) 1.7 % (1.0-6.0); HEMATOCRIT 35.6 % (41-53); HEMOGLOBIN 11.8 g/dL (13.5-17.5); LYMPHOCYTES % (AUTO) 17.6 % (22.0-44.0); MEAN CORPUSCULAR HEMOGLOBIN 30.6 pg (26.0-34.0); MEAN CORPUSCULAR HGB CONC 33.2 G/dL (31.0-37.0); MEAN CORPUSCULAR VOLUME 92 fL (80-100); MONOCYTES # (AUTO) 0.8 K/uL (0.1-1.0); MONOCYTES % (AUTO) 7.5 % (2.0-9.0); NEUTROPHILS # (AUTO) 8.1 K/uL (1.8-7.7); NEUTROPHILS % (AUTO) 72.9 % (40.0-70.0); PLATELET COUNT (AUTO) 216 K/uL (150-450); RED BLOOD CELL COUNT(AUTO) 3.86 MIL/uL (4.50-5.90); RED CELL DISTRIBUTION WIDTH 13.7 % (11.5-14.5); WHITE BLOOD COUNT (AUTO) 11.2 K/uL (4.5-11.0)
[2016-05-29 07:10] VITALS: BP 110/78
[2016-05-29] MEDS: LISINOPRIL 20 MG TABLET PO SCH (08:39)
[2016-05-29] MEDS: AMILoride HCL 5 MG TABLET PO SCH (08:40)
[2016-05-29] MEDS: TICAGRELOR 90 MG TABLET PO SCH (08:40)
[2016-05-29] MEDS: ASPIRIN 81 MG CHEWABLE TABLET PO SCH (08:40)
[2016-05-29] MEDS: AmLODIPine BESYLATE 10 MG TABLET PO SCH (09:00)
[2016-05-29] MEDS: METOPROLOL TARTRATE 25 MG TABLET PO SCH (11:04)
[2016-05-29 11:53] VITALS: BP 118/72
[2016-05-29] MEDS: INSULIN ASPART 100 UNITS/ML SQ PRN (11:57)
[2016-05-29] MEDS ORDERED: METF500T4 PO (14:48)
[2016-05-29] MEDS ORDERED: ASPI-1093 PO (14:49)
[2016-05-29] MEDS ORDERED: TICA90TA PO (14:51)
[2016-05-29 20:02] LABS: GLUCOSE,POINT OF CARE 278 MG/DL (70-110)
[2016-05-30 20:17] LABS: GLUCOSE COMMENT 1 Received Meds; GLUCOSE,POINT OF CARE 177 MG/DL (70-110)
[2016-06-01 06:43] LABS: GLUCOSE,POINT OF CARE 266 MG/DL (70-110)
[2016-06-21] MEDS ORDERED: SIMV-260 PO (12:42)
== END 2016-05-29 16:20 | disposition home or self-care (01) | DRG 250 ==
LOC: EMS 13:55 → 5S 18:48 → ICU 05-27 14:45 → 5N 05-28 13:45
PROVIDERS: ADMIT Internal Medicine; ATTEND Internal Medicine
PROC: 4A023N7 Measurement of Cardiac Sampling and Pressure, Left Heart, Percutaneous Approach (ICD-10-PCS; principal; 2016-05-27)
PROC: B2111ZZ Fluoroscopy of Multiple Coronary Arteries using Low Osmolar Contrast (ICD-10-PCS; 2016-05-27)
PROC: B41F1ZZ Fluoroscopy of Right Lower Extremity Arteries using Low Osmolar Contrast (ICD-10-PCS; 2016-05-27)
PROC: 02C03ZZ Extirpation of Matter from Coronary Artery, One Artery, Percutaneous Approach (ICD-10-PCS; 2016-05-27)
PROC: 02713ZZ Dilation of Coronary Artery, Two Arteries, Percutaneous Approach (ICD-10-PCS; 2016-05-27)
DX: T82.867A Thrombosis due to cardiac prosthetic devices, implants and grafts, initial encounter (principal); I21.4 Non-ST elevation (NSTEMI) myocardial infarction; E11.9 Type 2 diabetes mellitus without complications; E78.5 Hyperlipidemia, unspecified; I10 Essential (primary) hypertension; I25.10 Atherosclerotic heart disease of native coronary artery without angina pectoris; Y83.8 Other surgical procedures as the cause of abnormal reaction of the patient, or of later complication, without mention of misadventure at the time of the procedure; E78.00 Pure hypercholesterolemia, unspecified; Z82.49 Family history of ischemic heart disease and other diseases of the circulatory system; Z79.899 Other long term (current) drug therapy; Y92.89 Other specified places as the place of occurrence of the external cause
CPT/HCPCS: 82962; 83735; 84100; 87081; 92920; 93005; 94660; 99291; J1327; J1644; J1940; J2250; J3010; J3490; Q9967

== ENCOUNTER 2016-06-19 03:07 | Inpatient (IN) | payer SELFPAY ==
[~2016-06-19] VITALS: Ht 165.1 cm; Wt 77.0 kg
[~2016-06-19 03:07] MED LIST changes: +ASPI-1093 PO; +METF500T4 PO; -METF850T2 PO; +TICA90TA PO
[2016-06-19 03:17] LABS: GLUCOSE,POINT OF CARE 287 MG/DL (70-110)
[2016-06-19] MEDS ORDERED: ASPIRIN 325 MG TABLET PO ONE (03:45)
[2016-06-19] MEDS ORDERED: FUROSEMIDE 40 MG/4 ML VIAL IVP ONE (03:45)
[2016-06-19] MEDS ORDERED: NITROGLYCERIN 2% (1 GM=INCH) PACKET TP ONE (03:45)
[2016-06-19 03:47] LABS: BASOPHILS # (AUTO) 0.03 K/uL (0.00-0.20); BASOPHILS % (AUTO) 0.4 % (0.0-2.0); EOSINOPHILS # (AUTO) 0.11 K/uL (0.00-0.70); EOSINOPHILS % (AUTO) 1.41 % (1.0-6.0); HEMATOCRIT 31.3 % (41-53); HEMOGLOBIN 10.5 g/dL (13.5-17.5); LYMPHOCYTES # (AUTO) 0.9 K/uL (1.0-4.8); LYMPHOCYTES % (AUTO) 11.4 % (22.0-44.0); MEAN CORPUSCULAR HEMOGLOBIN 30.6 pg (26.0-34.0); MEAN CORPUSCULAR HGB CONC 33.6 G/dL (31.0-37.0); MEAN CORPUSCULAR VOLUME 91 fL (80-100); MONOCYTES # (AUTO) 0.4 K/uL (0.1-1.0); MONOCYTES % (AUTO) 5.1 % (2.0-9.0); NEUTROPHILS # (AUTO) 6.2 K/uL (1.8-7.7); NEUTROPHILS % (AUTO) 81.7 % (40.0-70.0); PLATELET COUNT (AUTO) 205 K/uL (150-450); RED BLOOD CELL COUNT(AUTO) 3.43 MIL/uL (4.50-5.90); RED CELL DISTRIBUTION WIDTH 13.7 % (11.5-14.5); WHITE BLOOD COUNT (AUTO) 7.6 K/uL (4.5-11.0)
[2016-06-19 04:02] LABS: ANION GAP 11 mmol/L (8-16); CALCIUM, TOTAL 8.7 mg/dL (8.8-10.5); CARBON DIOXIDE 22 mmol/L (22-29); CHLORIDE 103 mmol/L (98-107); GLOMERULAR FILTR. RATE CALC > 60 mL/min (>60); POTASSIUM 4.5 mmol/L (3.5-5.1); SODIUM SERUM 136 mmol/L (136-145); UREA NITROGEN, BLOOD 35 mg/dL (7-18)
[2016-06-19 04:08] LABS: ALANINE AMINOTRANSFERASE 35 U/L (12-78); ALBUMIN 3.5 g/dL (3.4-5.0); ASPARTATE AMINOTRANSFERASE 21 U/L (15-37); B-TYPE NATRIURETIC PEPTIDE 446 pg/mL (0-100); BILIRUBIN,TOTAL 0.3 mg/dL (0.1-1.0); TOTAL PROTEIN, SERUM 6.7 g/dL (6.4-8.2)
[2016-06-19] MEDS ORDERED: MAGNESIUM HYDROXIDE SUSPENSION 30 ML UDCUP PO PRN (07:30)
[2016-06-19] MEDS ORDERED: OxyCODONE HCL/ACETAMINOPHEN 5-325 MG TABLET PO PRN (07:30)
[2016-06-19] MEDS ORDERED: DEXTROSE 50%-WATER 25 GM/50 ML SYRINGE IVP PRN ×2 (07:30→07:45)
[2016-06-19] MEDS ORDERED: INSULIN REGULAR, HUMAN 100 UNITS/ML SQ PRN (07:30)
[2016-06-19] MEDS ORDERED: ACETAMINOPHEN 325 MG TABLET PO PRN (07:30)
[2016-06-19] MEDS: HEPARIN SODIUM,PORCINE 5,000 UNITS/ML VIAL SQ SCH ×3 (08:16→23:57)
[2016-06-19 08:42] LABS: GLUCOSE COMMENT 1 Repeated; GLUCOSE,POINT OF CARE 127 MG/DL (70-110)
[2016-06-19] MEDS ORDERED: FUROSEMIDE 20 MG TABLET PO SCH (09:00)
[2016-06-19] MEDS: ASPIRIN 81 MG CHEWABLE TABLET PO SCH (09:12)
[2016-06-19] MEDS: DOCUSATE SODIUM 100 MG CAPSULE PO SCH ×2 (09:12→20:29)
[2016-06-19] MEDS: METOPROLOL TARTRATE 25 MG TABLET PO SCH ×2 (09:14→20:30)
[2016-06-19] MEDS: PANTOPRAZOLE SODIUM 40 MG DR TABLET PO SCH (09:15)
[2016-06-19] MEDS: LISINOPRIL 10 MG TABLET PO SCH (09:15)
[2016-06-19] MEDS: TICAGRELOR 90 MG TABLET PO SCH ×2 (09:57→20:30)
[2016-06-19] MEDS: AmLODIPine BESYLATE 10 MG TABLET PO SCH (09:57)
[2016-06-19 12:32] LABS: GLUCOSE,POINT OF CARE 150 MG/DL (70-110)
[2016-06-19 18:35] VITALS: BP 134/92
[2016-06-19 19:57] VITALS: BP 122/89
[2016-06-19 20:12] LABS: GLUCOSE,POINT OF CARE 144 MG/DL (70-110)
[2016-06-19] MEDS: FUROSEMIDE 40 MG/4 ML VIAL IVP SCH (20:30)
[2016-06-19] MEDS: SIMVASTATIN 20 MG TABLET PO SCH (20:30)
[2016-06-19] MEDS ORDERED: TICAGRELOR 90 MG TABLET PO SCH (21:00)
[2016-06-19] MEDS: INSULIN ASPART 100 UNITS/ML SQ PRN (21:36)
[2016-06-20 00:07] VITALS: BP 103/59
[2016-06-20 03:47] LABS: GLUCOSE COMMENT 1 Received Meds; GLUCOSE,POINT OF CARE 247 MG/DL (70-110)
[2016-06-20 04:00] VITALS: BP 97/62
[2016-06-20 07:12] LABS: GLUCOSE,POINT OF CARE 124 MG/DL (70-110)
[2016-06-20 07:51] VITALS: BP 109/76
[2016-06-20] MEDS: DOCUSATE SODIUM 100 MG CAPSULE PO SCH ×2 (08:18→21:49)
[2016-06-20] MEDS: FUROSEMIDE 40 MG/4 ML VIAL IVP SCH (08:18)
[2016-06-20] MEDS: PANTOPRAZOLE SODIUM 40 MG DR TABLET PO SCH (08:18)
[2016-06-20] MEDS: ASPIRIN 81 MG CHEWABLE TABLET PO SCH (08:18)
[2016-06-20] MEDS: HEPARIN SODIUM,PORCINE 5,000 UNITS/ML VIAL SQ SCH ×2 (08:18→17:19)
[2016-06-20] MEDS: TICAGRELOR 90 MG TABLET PO SCH ×2 (08:18→21:49)
[2016-06-20] MEDS: METOPROLOL TARTRATE 25 MG TABLET PO SCH ×2 (08:27→21:47)
[2016-06-20] MEDS: AmLODIPine BESYLATE 10 MG TABLET PO SCH (08:27)
[2016-06-20] MEDS: LISINOPRIL 10 MG TABLET PO SCH (08:27)
[2016-06-20 09:03] LABS: ANION GAP 10 mmol/L (8-16); CALCIUM, TOTAL 8.8 mg/dL (8.8-10.5); CARBON DIOXIDE 27 mmol/L (22-29); CHLORIDE 104 mmol/L (98-107); CREATININE 1.06 mg/dL (0.60-1.30); GLOMERULAR FILTR. RATE CALC > 60 mL/min (>60); POTASSIUM 4.5 mmol/L (3.5-5.1); SODIUM SERUM 141 mmol/L (136-145); UREA NITROGEN, BLOOD 24 mg/dL (7-18)
[2016-06-20 11:34] VITALS: BP 109/69
[2016-06-20] MEDS: INSULIN ASPART 100 UNITS/ML SQ PRN ×3 (12:02→21:54)
[2016-06-20 15:23] VITALS: BP 109/67
[2016-06-20 19:49] VITALS: BP 109/74
[2016-06-20] MEDS: SIMVASTATIN 20 MG TABLET PO SCH (21:48)
[2016-06-21] VITALS: BP 104/68
[2016-06-21] MEDS: HEPARIN SODIUM,PORCINE 5,000 UNITS/ML VIAL SQ SCH ×2 (00:14→08:44)
[2016-06-21 04:29] VITALS: BP 106/68
[2016-06-21 05:57] LABS: GLUCOSE,POINT OF CARE 152 MG/DL (70-110)
[2016-06-21 05:58] LABS: GLUCOSE,POINT OF CARE 168 MG/DL (70-110)
[2016-06-21 07:46] VITALS: BP 132/76
[2016-06-21] MEDS: ASPIRIN 81 MG CHEWABLE TABLET PO SCH (08:44)
[2016-06-21] MEDS: PANTOPRAZOLE SODIUM 40 MG DR TABLET PO SCH (08:45)
[2016-06-21] MEDS: METOPROLOL TARTRATE 25 MG TABLET PO SCH (08:45)
[2016-06-21] MEDS: LISINOPRIL 10 MG TABLET PO SCH (08:45)
[2016-06-21] MEDS: TICAGRELOR 90 MG TABLET PO SCH (08:45)
[2016-06-21] MEDS: DOCUSATE SODIUM 100 MG CAPSULE PO SCH (08:45)
[2016-06-21] MEDS ORDERED: FUROSEMIDE 40 MG/4 ML VIAL IVP SCH (09:00)
[2016-06-21] MEDS ORDERED: FUROSEMIDE 40 MG TABLET PO SCH (09:45)
[2016-06-21] MEDS ORDERED: METOPROLOL SUCCINATE 25 MG ER TABLET PO SCH (09:45)
[2016-06-21 10:58] VITALS: BP 100/62
[2016-06-21] MEDS: INSULIN ASPART 100 UNITS/ML SQ PRN (11:55)
[2016-06-21] MEDS ORDERED: FURO40 PO (12:40)
[2016-06-21] MEDS ORDERED: LISI-660 PO (12:41)
[2016-06-21] MEDS ORDERED: METF500T4 PO (12:41)
[2016-06-21] MEDS ORDERED: SIMV20 PO (12:42)
[2016-06-21] MEDS ORDERED: METO-323 PO (12:42)
[2016-06-21] MEDS ORDERED: PANT40TA25 PO (12:43)
[2016-06-21 17:17] LABS: GLUCOSE COMMENT 1 Received Meds; GLUCOSE,POINT OF CARE 214 MG/DL (70-110)
[2016-06-21 17:22] LABS: GLUCOSE,POINT OF CARE 111 MG/DL (70-110)
[2016-06-21 20:01] LABS: GLUCOSE,POINT OF CARE 204 MG/DL (70-110)
== END 2016-06-21 15:15 | disposition home or self-care (01) | DRG 293 ==
LOC: EMS 03:08 → 5N 14:55 → 5S 14:55 → 5N 06-21 00:22
PROVIDERS: ADMIT Internal Medicine; ATTEND Internal Medicine
DX: I11.0 Hypertensive heart disease with heart failure (principal); I25.10 Atherosclerotic heart disease of native coronary artery without angina pectoris; I50.23 Acute on chronic systolic (congestive) heart failure; E11.9 Type 2 diabetes mellitus without complications; E78.5 Hyperlipidemia, unspecified; I25.5 Ischemic cardiomyopathy; Z95.1 Presence of aortocoronary bypass graft; Z95.5 Presence of coronary angioplasty implant and graft; Z79.899 Other long term (current) drug therapy; Z79.82 Long term (current) use of aspirin
CPT/HCPCS: 82962; 93005; 93306; 96374; 99285; J1644; J1940

== ENCOUNTER 2019-01-21 16:41 | Emergency (ER) | payer SELFPAY ==
[~2019-01-21] VITALS: Ht 167.6 cm; Wt 81.8 kg
[~2019-01-21 16:41] MED LIST changes: -AMIL5TAB8 PO; -AMLO-512 PO; -ASPI-1093 PO; +ASPI-1522 PO; +FURO40 PO; -GLIP5TAB11 PO; +LISI-660 PO; -LISI-662 PO; +METF-960 PO; -METF500T4 PO; -METO25 PO; +METO25XL PO; +PANT40TA25 PO; +SIMV-260 PO
[2019-01-21 17:07] LABS: GLUCOSE,POINT OF CARE 282 MG/DL (70-110)
[2019-01-21] MEDS ORDERED: LISI-662 PO (17:15)
[2019-01-21] MEDS ORDERED: METO-558 PO (17:15)
[2019-01-21] MEDS ORDERED: ACETAMINOPHEN 500 MG TABLET PO ONE (17:15)
[2019-01-21] MEDS ORDERED: SODIUM CHLORIDE 0.9% 1,000 ML IV ONE (17:15)
[2019-01-21] MEDS ORDERED: CLOP75TA3 PO (17:16)
[2019-01-21 17:30] LABS: HEMATOCRIT 36.6 % (41-53); HEMOGLOBIN 12.1 g/dL (13.5-17.5); MEAN CORPUSCULAR HEMOGLOBIN 28.4 pg (26.0-34.0); MEAN CORPUSCULAR VOLUME 86 fL (80-100); PLATELET COUNT (AUTO) 230 K/uL (150-450); RED BLOOD CELL COUNT(AUTO) 4.25 MIL/uL (4.50-5.90); RED CELL DISTRIBUTION WIDTH 15.5 % (11.5-14.5)
[2019-01-21 17:40] LABS: ANION GAP 9 mmol/L (8-16); CALCIUM, TOTAL 9.5 mg/dL (8.8-10.5); CARBON DIOXIDE 27 mmol/L (22-29); CHLORIDE 95 mmol/L (98-107); CREATININE 1.18 mg/dL (0.60-1.30); GLOMERULAR FILTR. RATE CALC > 60 mL/min (>60); GLUCOSE,RANDOM 285 mg/dL (70-110); POTASSIUM 4.5 mmol/L (3.5-5.1); SODIUM SERUM 131 mmol/L (136-145); UREA NITROGEN, BLOOD 20 mg/dL (7-18)
[2019-01-21 17:46] LABS: ALANINE AMINOTRANSFERASE 27 U/L (12-78); ALBUMIN 3.5 g/dL (3.4-5.0); ALKALINE PHOSPHATASE 119 U/L (46-116); ASPARTATE AMINOTRANSFERASE 19 U/L (15-37); BILIRUBIN,TOTAL 0.8 mg/dL (0.1-1.0); TOTAL PROTEIN, SERUM 7.9 g/dL (6.4-8.2)
[2019-01-21 17:54] LABS: APPEARANCE,URINE CLOUDY (CLEAR); BILIRUBIN,URINE NEGATIVE (NEGATIVE); GLUCOSE, URINE (UA) >=1000 mg/dL (NEGATIVE); KETONES,URINE NEGATIVE (NEGATIVE); LEUKOCYTE ESTERASE ,URINE LARGE (NEGATIVE); NITRATE,URINE POSITIVE (NEGATIVE); OCCULT BLOOD,URINE MODERATE (NEGATIVE); PROTEIN,URINE SEE CONFIRM (NEGATIVE)
[2019-01-21 17:55] LABS: BACTERIA,URINE Many /HPF (None Seen); SULFOSALICYLIC ACID,URINE 3+ (Negative); WBC,URINE >100 /HPF (0-5)
[2019-01-21 17:56] LABS: INFLUENZA TYPE A NEGATIVE FOR TYPE A (NEGATIVE); INFLUENZA TYPE B NEGATIVE FOR TYPE B (NEGATIVE)
[2019-01-21] MEDS ORDERED: IBUPROFEN 600 MG TABLET PO ONE (18:00)
[2019-01-21] MEDS ORDERED: CefTRIAXone 1 GM/DEXTROSE 50 ML IV ONE (18:00)
[2019-01-21 18:02] LABS: BAND NEUTROPHILS % (MANUAL) 5 % (0-5); LYMPHOCYTES % (MANUAL) 5 % (22-44); MONOCYTES % (MANUAL) 9 % (2-9); SEGMENTED NEUTROPHILS % 81 % (40-70)
[2019-01-21] MEDS ORDERED: FentaNYL CITRATE-PF 100 MCG/2 ML VIAL IVP ONE (20:00)
[2019-01-21] MEDS ORDERED: MIDAZOLAM HCL 2 MG/2 ML VIAL IVP ONE (20:00)
[2019-01-21 20:23] VITALS: BP 116/68
== END 2019-01-21 20:27 | disposition home or self-care (01) ==
LOC: EMS 16:49
DX: N39.0 Urinary tract infection, site not specified (principal); I11.0 Hypertensive heart disease with heart failure; I50.9 Heart failure, unspecified; I25.10 Atherosclerotic heart disease of native coronary artery without angina pectoris; E11.9 Type 2 diabetes mellitus without complications; Z79.899 Other long term (current) drug therapy; Z79.82 Long term (current) use of aspirin
CPT/HCPCS: 36415; 71045; 80053; 81001; 82962; 83605; 85025; 87086; 87804; 93005; 96365; 99285; J0696; J7030

== ENCOUNTER 2019-01-24 10:34 | Emergency (ER) | payer SELFPAY ==
[~2019-01-24] VITALS: Ht 167.6 cm; Wt 74.1 kg
[~2019-01-24 10:34] MED LIST changes: +CLOP75TA3 PO; -LISI-660 PO; +LISI-662 PO; -LOVA20 PO; +METO-558 PO; -METO25XL PO; -PANT40TA25 PO; -TICA90TA PO
[2019-01-24 11:04] VITALS: BP 113/72
[2019-01-24] MEDS ORDERED: SULFAMETHOX/TRIMETH DS 800-160 MG/TABLET PO ONE (11:30)
== END 2019-01-24 11:46 | disposition home or self-care (01) ==
LOC: EMS 10:35
DX: N39.0 Urinary tract infection, site not specified (principal); I11.0 Hypertensive heart disease with heart failure; I50.9 Heart failure, unspecified; I25.10 Atherosclerotic heart disease of native coronary artery without angina pectoris; Z79.84 Long term (current) use of oral hypoglycemic drugs; Z79.82 Long term (current) use of aspirin; Z79.899 Other long term (current) drug therapy

== ENCOUNTER 2020-12-23 13:24 | Emergency (ER) | payer MEDICARE ==
[~2020-12-23] VITALS: Ht 167.6 cm; Wt 77.3 kg
[~2020-12-23 13:24] MED LIST changes: -CLOP75TA3 PO; +CLOP75TA60 PO; -LISI-662 PO; +LISI-894 PO; +METF-1211 PO; -METF-960 PO
[2020-12-23] MEDS ORDERED: LISI-894 PO (13:44)
[2020-12-23] MEDS ORDERED: GABA-1216 PO (13:44)
[2020-12-23] MEDS ORDERED: METF-1211 PO (13:44)
[2020-12-23 15:23] LABS: BASOPHILS % (AUTO) 1.2 % (0.0-2.0); EOSINOPHILS % (AUTO) 4.3 % (1.0-6.0); HEMATOCRIT 36.7 % (41-53); HEMOGLOBIN 11.9 g/dL (13.5-17.5); LYMPHOCYTES # (AUTO) 1.2 K/uL (1.0-4.8); LYMPHOCYTES % (AUTO) 16.9 % (22.0-44.0); MEAN CORPUSCULAR HEMOGLOBIN 29.2 pg (26.0-34.0); MEAN CORPUSCULAR HGB CONC 32.4 G/dL (31.0-37.0); MEAN CORPUSCULAR VOLUME 90 fL (80-100); MONOCYTES # (AUTO) 0.5 K/uL (0.1-1.0); MONOCYTES % (AUTO) 7.7 % (2.0-9.0); NEUTROPHILS # (AUTO) 4.9 K/uL (1.8-7.7); NEUTROPHILS % (AUTO) 69.9 % (40.0-70.0); PLATELET COUNT (AUTO) 188 K/uL (150-450); RED BLOOD CELL COUNT(AUTO) 4.08 MIL/uL (4.50-5.90); RED CELL DISTRIBUTION WIDTH 14.9 % (11.5-14.5)
[2020-12-23 15:32] LABS: ANION GAP 7 mmol/L (8-16); CARBON DIOXIDE 31 mmol/L (22-29); CHLORIDE 103 mmol/L (98-107); CREATININE 1.13 mg/dL (0.60-1.30); GLOMERULAR FILTR. RATE CALC > 60 mL/min (>60); GLUCOSE,RANDOM 288 mg/dL (70-110); POTASSIUM 4.3 mmol/L (3.5-5.1); SODIUM SERUM 141 mmol/L (136-145); UREA NITROGEN, BLOOD 43 mg/dL (7-18)
[2020-12-23 15:38] LABS: ALANINE AMINOTRANSFERASE 32 U/L (12-78); ALBUMIN 3.4 g/dL (3.4-5.0); ALKALINE PHOSPHATASE 189 U/L (46-116); ASPARTATE AMINOTRANSFERASE 24 U/L (15-37); BILIRUBIN,TOTAL 0.7 mg/dL (0.1-1.0); TOTAL PROTEIN, SERUM 6.6 g/dL (6.4-8.2)
[2020-12-23 15:56] VITALS: BP 132/76
== END 2020-12-23 15:57 | disposition home or self-care (01) ==
LOC: EMS 13:40
DX: R60.0 Localized edema (principal); I11.0 Hypertensive heart disease with heart failure; I50.9 Heart failure, unspecified; I25.10 Atherosclerotic heart disease of native coronary artery without angina pectoris; E11.9 Type 2 diabetes mellitus without complications; Z79.899 Other long term (current) drug therapy; Z79.84 Long term (current) use of oral hypoglycemic drugs
CPT/HCPCS: 71045; 80053; 85025; 93970; 99284; 36415-L1; 36415-TC

== ENCOUNTER 2020-12-26 17:08 | Inpatient (IN) | payer MEDICARE ==
[~2020-12-26] VITALS: Ht 170.2 cm; Wt 76.0 kg
[~2020-12-26 17:08] MED LIST changes: +GABA-1216 PO
[2020-12-26 17:26] LABS: GLUCOSE,POINT OF CARE 317 MG/DL (70-110)
[2020-12-26 20:11] LABS: BASOPHILS % (AUTO) 1.1 % (0.0-2.0); HEMATOCRIT 38.7 % (41-53); HEMOGLOBIN 12.7 g/dL (13.5-17.5); LYMPHOCYTES # (AUTO) 1.2 K/uL (1.0-4.8); LYMPHOCYTES % (AUTO) 14.8 % (22.0-44.0); MEAN CORPUSCULAR HEMOGLOBIN 29.1 pg (26.0-34.0); MEAN CORPUSCULAR HGB CONC 32.8 G/dL (31.0-37.0); MEAN CORPUSCULAR VOLUME 89 fL (80-100); MONOCYTES # (AUTO) 0.6 K/uL (0.1-1.0); MONOCYTES % (AUTO) 6.9 % (2.0-9.0); NEUTROPHILS # (AUTO) 6.2 K/uL (1.8-7.7); NEUTROPHILS % (AUTO) 74.2 % (40.0-70.0); PLATELET COUNT (AUTO) 214 K/uL (150-450); RED BLOOD CELL COUNT(AUTO) 4.36 MIL/uL (4.50-5.90); RED CELL DISTRIBUTION WIDTH 14.3 % (11.5-14.5)
[2020-12-26 20:20] LABS: ANION GAP 4 mmol/L (8-16); CALCIUM, TOTAL 9.4 mg/dL (8.8-10.5); CARBON DIOXIDE 33 mmol/L (22-29); CHLORIDE 101 mmol/L (98-107); CREATININE 1.08 mg/dL (0.60-1.30); GLOMERULAR FILTR. RATE CALC > 60 mL/min (>60); GLUCOSE,RANDOM 293 mg/dL (70-110); POTASSIUM 4.7 mmol/L (3.5-5.1); SODIUM SERUM 138 mmol/L (136-145); UREA NITROGEN, BLOOD 44 mg/dL (7-18)
[2020-12-26 20:27] LABS: ALANINE AMINOTRANSFERASE 33 U/L (12-78); ALBUMIN 3.8 g/dL (3.4-5.0); ALKALINE PHOSPHATASE 234 U/L (46-116); ASPARTATE AMINOTRANSFERASE 24 U/L (15-37); BILIRUBIN,TOTAL 0.7 mg/dL (0.1-1.0); TOTAL PROTEIN, SERUM 7.6 g/dL (6.4-8.2)
[2020-12-26] MEDS ORDERED: KETOROLAC TROMETHAMINE 10 MG TABLET PO ONE (20:30)
[2020-12-27] MEDS ORDERED: PIPERACILLIN/TAZO 3.375 GM/D5W 50 ML IV ONE (00:27)
[2020-12-27] MEDS ORDERED: ONDANSETRON HCL 4 MG/2 ML VIAL IVP PRN ×2 (00:30→15:00)
[2020-12-27] MEDS ORDERED: 0.9% SODIUM CHLORIDE 10 ML SYRINGE IVP PRN (00:30)
[2020-12-27] MEDS ORDERED: ACETAMINOPHEN 325 MG TABLET PO PRN ×2 (00:30→15:00)
[2020-12-27] MEDS ORDERED: FUROSEMIDE 40 MG/4 ML VIAL IVP ONE (00:30)
[2020-12-27 01:00] LABS: COVID AG,FIA SOURCE NASOPHARYNGEAL
[2020-12-27 01:08] LABS: LACTIC ACID 0.8 mmol/L (0.4-2.0)
[2020-12-27 04:27] VITALS: BP 139/81
[2020-12-27] MEDS ORDERED: INFLUENZA VIRUS VACCINE QVS 2021-22 (6MO+)/PF 60 MCG/0.5 ML SYRINGE IM. ONE (05:30)
[2020-12-27] MEDS ORDERED: PNEUMOCOCCAL VACCINE POLYVALENT 0.5 ML VIAL [PPSV23] IM. ONE (05:30)
[2020-12-27 07:33] VITALS: BP 127/76
[2020-12-27] MEDS ORDERED: FUROSEMIDE 40 MG/4 ML VIAL IVP SCH (09:00)
[2020-12-27 11:06] VITALS: BP 137/76
[2020-12-27] MEDS ORDERED: MAGNESIUM HYDROXIDE SUSPENSION 30 ML UDCUP PO PRN (15:00)
[2020-12-27] MEDS ORDERED: ZOLPIDEM TARTRATE 5 MG TABLET PO PRN (15:00)
[2020-12-27] MEDS ORDERED: BISACODYL 10 MG RECTAL RECTAL SUPPOSITORY PR PRN (15:00)
[2020-12-27] MEDS ORDERED: ALBUTEROL SULFATE 2.5 MG/0.5 ML NEB SOLUTION NEB PRN (15:00)
[2020-12-27] MEDS ORDERED: IPRATROPIUM BROMIDE 0.5 MG/2.5 ML NEB SOLUTION NEB PRN (15:00)
[2020-12-27] MEDS ORDERED: MORPHINE SULFATE 2 MG/ML SYRINGE IVP PRN (15:00)
[2020-12-27 15:45] VITALS: BP 129/72
[2020-12-27] MEDS ORDERED: SODIUM CHLORIDE 0.9% 250 ML IV ONE (16:45)
[2020-12-27] MEDS: MetFORMIN HCL 500 MG TABLET PO SCH (17:42)
[2020-12-27] MEDS: HEPARIN SODIUM,PORCINE 5,000 UNITS/ML VIAL SQ SCH ×2 (17:42→23:38)
[2020-12-27] MEDS ORDERED: GLUCAGON,HUMAN RECOMBINANT 1 MG VIAL IM PRN (18:00)
[2020-12-27] MEDS ORDERED: INSULIN LISPRO 100 UNITS/ML SQ PRN (18:00)
[2020-12-27 18:18] LABS: GLUCOMETER DEV NAME(LOC) 5S.1; GLUCOSE,POINT OF CARE 357 MG/DL (70-110)
[2020-12-27] MEDS: CeFAZolin 2 GM/DEXTROSE 50 ML IV SCH (19:40)
[2020-12-27 19:48] VITALS: BP 134/76
[2020-12-27] MEDS ORDERED: DEXTROSE 50%-WATER 25 GM/50 ML SYG IVP PRN (21:00)
[2020-12-27] MEDS: LISINOPRIL 20 MG TABLET PO SCH (21:31)
[2020-12-27] MEDS: GABAPENTIN 100 MG CAPSULE PO SCH (21:31)
[2020-12-27] MEDS: FUROSEMIDE 40 MG TABLET PO SCH (21:31)
[2020-12-27] MEDS: HYDROCODONE/ACETAMINOPHEN 5-325 MG TABLET PO PRN (21:31)
[2020-12-28 00:15] VITALS: BP 134/76
[2020-12-28] MEDS: CeFAZolin 2 GM/DEXTROSE 50 ML IV SCH ×3 (02:28→18:50)
[2020-12-28 05:19] VITALS: BP 116/64
[2020-12-28] MEDS: INSULIN LISPRO 100 UNITS/ML SQ PRN ×2 (06:23→12:30)
[2020-12-28 07:44] VITALS: BP 135/62
[2020-12-28] MEDS: HYDROCODONE/ACETAMINOPHEN 5-325 MG TABLET PO PRN ×2 (07:49→16:29)
[2020-12-28] MEDS: GABAPENTIN 100 MG CAPSULE PO SCH ×2 (07:52→20:55)
[2020-12-28] MEDS: HEPARIN SODIUM,PORCINE 5,000 UNITS/ML VIAL SQ SCH ×3 (07:52→23:46)
[2020-12-28] MEDS: LISINOPRIL 20 MG TABLET PO SCH ×2 (07:52→20:55)
[2020-12-28] MEDS: MetFORMIN HCL 500 MG TABLET PO SCH ×2 (07:52→17:38)
[2020-12-28] MEDS: CLOPIDOGREL BISULFATE 75 MG TABLET PO SCH (07:52)
[2020-12-28] MEDS: FUROSEMIDE 40 MG TABLET PO SCH ×2 (07:53→20:55)
[2020-12-28] MEDS: ASPIRIN 81 MG DR TABLET PO SCH (07:53)
[2020-12-28] MEDS: METOPROLOL SUCCINATE 50 MG ER TABLET PO SCH (07:53)
[2020-12-28] MEDS: SIMVASTATIN 20 MG TABLET PO SCH (07:53)
[2020-12-28 08:35] LABS: GLUCOMETER DEV NAME(LOC) 5N.1C; GLUCOSE,POINT OF CARE 180 MG/DL (70-110)
[2020-12-28 08:35] LABS: GLUCOMETER DEV NAME(LOC) 5N.1C; GLUCOSE,POINT OF CARE 139 MG/DL (70-110)
[2020-12-28] MEDS ORDERED: SODIUM CHLORIDE 0.9% 250 ML IV ONE (10:25)
[2020-12-28 11:21] VITALS: BP 130/78
[2020-12-28 12:36] LABS: GLUCOMETER DEV NAME(LOC) 5N.1C; GLUCOSE,POINT OF CARE 251 MG/DL (70-110)
[2020-12-28 16:05] VITALS: BP 124/79
[2020-12-28 19:30] VITALS: BP 141/76
[2020-12-29] VITALS (7 sets, daily range): BP systolic 108–126; BP diastolic 60–73
[2020-12-29 01:43] LABS: GLUCOMETER DEV NAME(LOC) 5S.2B; GLUCOSE,POINT OF CARE 136 MG/DL (70-110)
[2020-12-29 01:59] LABS: GLUCOMETER DEV NAME(LOC) 5S.1; GLUCOSE,POINT OF CARE 138 MG/DL (70-110)
[2020-12-29] MEDS: CeFAZolin 2 GM/DEXTROSE 50 ML IV SCH ×3 (03:23→20:16)
[2020-12-29] MEDS: HYDROCODONE/ACETAMINOPHEN 5-325 MG TABLET PO PRN ×2 (05:40→20:38)
[2020-12-29] MEDS: INSULIN LISPRO 100 UNITS/ML SQ PRN ×2 (05:43→17:36)
[2020-12-29 06:00] LABS: BASOPHILS % (AUTO) 1.1 % (0.0-2.0); EOSINOPHILS % (AUTO) 4.9 % (1.0-6.0); HEMATOCRIT 34.8 % (41-53); HEMOGLOBIN 11.5 g/dL (13.5-17.5); LYMPHOCYTES # (AUTO) 1.6 K/uL (1.0-4.8); LYMPHOCYTES % (AUTO) 21.5 % (22.0-44.0); MEAN CORPUSCULAR HEMOGLOBIN 29.1 pg (26.0-34.0); MEAN CORPUSCULAR HGB CONC 33.2 G/dL (31.0-37.0); MEAN CORPUSCULAR VOLUME 88 fL (80-100); MONOCYTES # (AUTO) 0.5 K/uL (0.1-1.0); MONOCYTES % (AUTO) 7.2 % (2.0-9.0); NEUTROPHILS # (AUTO) 4.8 K/uL (1.8-7.7); NEUTROPHILS % (AUTO) 65.3 % (40.0-70.0); PLATELET COUNT (AUTO) 174 K/uL (150-450); RED BLOOD CELL COUNT(AUTO) 3.97 MIL/uL (4.50-5.90); RED CELL DISTRIBUTION WIDTH 14.6 % (11.5-14.5)
[2020-12-29 06:26] LABS: ALANINE AMINOTRANSFERASE 22 U/L (12-78); ALBUMIN 3.1 g/dL (3.4-5.0); ALKALINE PHOSPHATASE 187 U/L (46-116); ANION GAP 7 mmol/L (8-16); ASPARTATE AMINOTRANSFERASE 19 U/L (15-37); BILIRUBIN,TOTAL 0.5 mg/dL (0.1-1.0); CALCIUM, TOTAL 8.6 mg/dL (8.8-10.5); CARBON DIOXIDE 30 mmol/L (22-29); CHLORIDE 101 mmol/L (98-107); CREATININE 0.89 mg/dL (0.60-1.30); GLOMERULAR FILTR. RATE CALC > 60 mL/min (>60); GLUCOSE,RANDOM 163 mg/dL (70-110); POTASSIUM 3.9 mmol/L (3.5-5.1); SODIUM SERUM 138 mmol/L (136-145); THYROID STIMULATING HORMONE 2.12 uIU/mL (0.36-3.74); TOTAL PROTEIN, SERUM 6.4 g/dL (6.4-8.2); UREA NITROGEN, BLOOD 36 mg/dL (7-18)
[2020-12-29 06:45] LABS: GLUCOMETER DEV NAME(LOC) 5S.1; GLUCOSE,POINT OF CARE 225 MG/DL (70-110)
[2020-12-29] MEDS: MetFORMIN HCL 500 MG TABLET PO SCH ×2 (08:33→18:03)
[2020-12-29] MEDS: ASPIRIN 81 MG DR TABLET PO SCH (08:33)
[2020-12-29] MEDS: SIMVASTATIN 20 MG TABLET PO SCH (08:33)
[2020-12-29] MEDS: FUROSEMIDE 40 MG TABLET PO SCH ×2 (08:34→20:37)
[2020-12-29] MEDS: GABAPENTIN 100 MG CAPSULE PO SCH ×2 (08:34→20:37)
[2020-12-29] MEDS: LISINOPRIL 20 MG TABLET PO SCH ×2 (08:34→20:38)
[2020-12-29] MEDS: CLOPIDOGREL BISULFATE 75 MG TABLET PO SCH (08:34)
[2020-12-29] MEDS: HEPARIN SODIUM,PORCINE 5,000 UNITS/ML VIAL SQ SCH ×2 (08:34→16:49)
[2020-12-29] MEDS: METOPROLOL SUCCINATE 50 MG ER TABLET PO SCH (08:34)
[2020-12-29 12:31] LABS: GLUCOMETER DEV NAME(LOC) 5N.1C; GLUCOSE,POINT OF CARE 210 MG/DL (70-110)
[2020-12-29 17:57] LABS: GLUCOMETER DEV NAME(LOC) 5S.1; GLUCOSE,POINT OF CARE 213 MG/DL (70-110)
[2020-12-29 20:48] LABS: GLUCOMETER DEV NAME(LOC) 5N.1C; GLUCOSE,POINT OF CARE 143 MG/DL (70-110)
[2020-12-30] MEDS: HEPARIN SODIUM,PORCINE 5,000 UNITS/ML VIAL SQ SCH ×3 (00:16→17:00)
[2020-12-30] MEDS: CeFAZolin 2 GM/DEXTROSE 50 ML IV SCH ×3 (02:42→18:01)
[2020-12-30] MEDS: HYDROCODONE/ACETAMINOPHEN 5-325 MG TABLET PO PRN ×2 (04:38→09:39)
[2020-12-30 04:40] VITALS: BP 130/78
[2020-12-30 06:18] LABS: GLUCOMETER DEV NAME(LOC) 5S.1; GLUCOSE,POINT OF CARE 94 MG/DL (70-110)
[2020-12-30] MEDS: MetFORMIN HCL 500 MG TABLET PO SCH ×2 (07:59→18:00)
[2020-12-30] MEDS: CLOPIDOGREL BISULFATE 75 MG TABLET PO SCH (08:00)
[2020-12-30] MEDS: LISINOPRIL 20 MG TABLET PO SCH ×2 (08:00→21:22)
[2020-12-30] MEDS: GABAPENTIN 100 MG CAPSULE PO SCH ×2 (08:00→21:22)
[2020-12-30] MEDS: ASPIRIN 81 MG DR TABLET PO SCH (08:00)
[2020-12-30] MEDS: METOPROLOL SUCCINATE 50 MG ER TABLET PO SCH (08:00)
[2020-12-30] MEDS: FUROSEMIDE 40 MG TABLET PO SCH ×2 (08:00→21:22)
[2020-12-30] MEDS: SIMVASTATIN 20 MG TABLET PO SCH (08:00)
[2020-12-30 08:14] VITALS: BP 124/73
[2020-12-30 09:18] LABS: GLUCOMETER DEV NAME(LOC) 5S.1; GLUCOSE,POINT OF CARE 355 MG/DL (70-110)
[2020-12-30 09:18] LABS: GLUCOMETER DEV NAME(LOC) ERT.5; GLUCOSE,POINT OF CARE 296 MG/DL (70-110)
[2020-12-30] MEDS ORDERED: PredniSONE 20 MG TABLET PO ONE (09:30)
[2020-12-30 11:39] VITALS: BP 129/79
[2020-12-30 13:32] LABS: GLUCOMETER DEV NAME(LOC) 5S.2B; GLUCOSE,POINT OF CARE 124 MG/DL (70-110)
[2020-12-30] MEDS ORDERED: SODIUM CHLORIDE 0.9% 250 ML IV ONE (14:24)
[2020-12-30 15:44] VITALS: BP 131/75
[2020-12-30] MEDS: INSULIN LISPRO 100 UNITS/ML SQ PRN ×2 (17:58→21:59)
[2020-12-30 18:03] LABS: GLUCOMETER DEV NAME(LOC) 5N.3; GLUCOSE,POINT OF CARE 298 MG/DL (70-110)
[2020-12-30 20:20] VITALS: BP 140/85
[2020-12-30 23:15] LABS: GLUCOMETER DEV NAME(LOC) 5S.1; GLUCOSE,POINT OF CARE 307 MG/DL (70-110)
[2020-12-31] MEDS: HEPARIN SODIUM,PORCINE 5,000 UNITS/ML VIAL SQ SCH ×3 (00:15→16:57)
[2020-12-31 00:22] VITALS: BP 120/72
[2020-12-31] MEDS: CeFAZolin 2 GM/DEXTROSE 50 ML IV SCH ×3 (03:15→21:24)
[2020-12-31 04:33] VITALS: BP 113/65
[2020-12-31] MEDS: INSULIN LISPRO 100 UNITS/ML SQ PRN ×4 (06:41→21:24)
[2020-12-31] MEDS: HYDROCODONE/ACETAMINOPHEN 5-325 MG TABLET PO PRN (06:43)
[2020-12-31 07:09] LABS: GLUCOMETER DEV NAME(LOC) 5S.2B; GLUCOSE,POINT OF CARE 198 MG/DL (70-110)
[2020-12-31 08:17] VITALS: BP 120/74
[2020-12-31] MEDS: METOPROLOL SUCCINATE 50 MG ER TABLET PO SCH (08:44)
[2020-12-31] MEDS: PredniSONE 20 MG TABLET PO SCH (08:45)
[2020-12-31] MEDS: LISINOPRIL 20 MG TABLET PO SCH ×2 (08:46→21:23)
[2020-12-31] MEDS: GABAPENTIN 100 MG CAPSULE PO SCH ×2 (08:46→21:23)
[2020-12-31] MEDS: FUROSEMIDE 40 MG TABLET PO SCH ×2 (08:46→21:23)
[2020-12-31] MEDS: ASPIRIN 81 MG DR TABLET PO SCH (08:46)
[2020-12-31] MEDS: CLOPIDOGREL BISULFATE 75 MG TABLET PO SCH (08:47)
[2020-12-31] MEDS: MetFORMIN HCL 500 MG TABLET PO SCH ×2 (08:47→17:00)
[2020-12-31] MEDS: SIMVASTATIN 20 MG TABLET PO SCH (08:47)
[2020-12-31 12:11] VITALS: BP 120/75
[2020-12-31 12:34] LABS: GLUCOMETER DEV NAME(LOC) 5S.2B; GLUCOSE,POINT OF CARE 180 MG/DL (70-110)
[2020-12-31 15:53] VITALS: BP 121/65
[2020-12-31 20:02] VITALS: BP 117/65
[2020-12-31 20:07] LABS: GLUCOMETER DEV NAME(LOC) 5N.3; GLUCOSE,POINT OF CARE 342 MG/DL (70-110)
[2020-12-31] MEDS: CLOTRIMAZOLE 1% 15 GM CREAM TP SCH (21:00)
[2021-01-01] VITALS (7 sets, daily range): BP systolic 113–127; BP diastolic 65–75
[2021-01-01] MEDS: HEPARIN SODIUM,PORCINE 5,000 UNITS/ML VIAL SQ SCH ×4 (00:34→23:49)
[2021-01-01 01:26] LABS: GLUCOMETER DEV NAME(LOC) 5N.3; GLUCOSE,POINT OF CARE 324 MG/DL (70-110)
[2021-01-01] MEDS: CeFAZolin 2 GM/DEXTROSE 50 ML IV SCH ×3 (03:30→19:35)
[2021-01-01 06:07] LABS: GLUCOMETER DEV NAME(LOC) 5S.2B; GLUCOSE,POINT OF CARE 143 MG/DL (70-110)
[2021-01-01] MEDS: INSULIN LISPRO 100 UNITS/ML SQ PRN ×4 (06:27→20:36)
[2021-01-01] MEDS: SIMVASTATIN 20 MG TABLET PO SCH (08:22)
[2021-01-01] MEDS: MetFORMIN HCL 500 MG TABLET PO SCH ×2 (08:23→18:04)
[2021-01-01] MEDS: FUROSEMIDE 40 MG TABLET PO SCH ×2 (08:23→20:34)
[2021-01-01] MEDS: GABAPENTIN 100 MG CAPSULE PO SCH ×2 (08:24→20:34)
[2021-01-01] MEDS: LISINOPRIL 20 MG TABLET PO SCH ×2 (08:24→20:34)
[2021-01-01] MEDS: ASPIRIN 81 MG DR TABLET PO SCH (08:24)
[2021-01-01] MEDS: PredniSONE 20 MG TABLET PO SCH (08:25)
[2021-01-01] MEDS: CLOTRIMAZOLE 1% 15 GM CREAM TP SCH ×2 (08:29→20:34)
[2021-01-01] MEDS: CLOPIDOGREL BISULFATE 75 MG TABLET PO SCH (08:29)
[2021-01-01] MEDS: METOPROLOL SUCCINATE 50 MG ER TABLET PO SCH (09:00)
[2021-01-01 09:16] LABS: GLUCOMETER DEV NAME(LOC) 5S.2B; GLUCOSE,POINT OF CARE 114 MG/DL (70-110)
[2021-01-01] MEDS: APIXABAN 5 MG TABLET PO SCH ×2 (10:59→20:34)
[2021-01-01 12:53] LABS: GLUCOMETER DEV NAME(LOC) 5S.2B; GLUCOSE,POINT OF CARE 170 MG/DL (70-110)
[2021-01-01 17:14] LABS: GLUCOMETER DEV NAME(LOC) 5S.2B; GLUCOSE,POINT OF CARE 301 MG/DL (70-110)
[2021-01-01 19:48] LABS: GLUCOMETER DEV NAME(LOC) 5S.2B; GLUCOSE,POINT OF CARE 306 MG/DL (70-110)
[2021-01-02] MEDS: CeFAZolin 2 GM/DEXTROSE 50 ML IV SCH ×3 (02:59→18:19)
[2021-01-02 04:50] VITALS: BP 117/71
[2021-01-02 05:51] LABS: BASOPHILS % (AUTO) 0.5 % (0.0-2.0); EOSINOPHILS % (AUTO) 0.5 % (1.0-6.0); HEMATOCRIT 36.8 % (41-53); HEMOGLOBIN 12.2 g/dL (13.5-17.5); LYMPHOCYTES # (AUTO) 1.4 K/uL (1.0-4.8); LYMPHOCYTES % (AUTO) 15.3 % (22.0-44.0); MEAN CORPUSCULAR HEMOGLOBIN 29.1 pg (26.0-34.0); MEAN CORPUSCULAR HGB CONC 33.3 G/dL (31.0-37.0); MEAN CORPUSCULAR VOLUME 88 fL (80-100); MONOCYTES # (AUTO) 0.6 K/uL (0.1-1.0); MONOCYTES % (AUTO) 6.3 % (2.0-9.0); NEUTROPHILS # (AUTO) 7.1 K/uL (1.8-7.7); NEUTROPHILS % (AUTO) 77.4 % (40.0-70.0); PLATELET COUNT (AUTO) 187 K/uL (150-450); RED CELL DISTRIBUTION WIDTH 14.2 % (11.5-14.5)
[2021-01-02 06:26] LABS: GLUCOMETER DEV NAME(LOC) 5S.1; GLUCOSE,POINT OF CARE 123 MG/DL (70-110)
[2021-01-02 06:32] LABS: ALANINE AMINOTRANSFERASE 22 U/L (12-78); ALBUMIN 3.1 g/dL (3.4-5.0); ALKALINE PHOSPHATASE 170 U/L (46-116); ANION GAP 3 mmol/L (8-16); ASPARTATE AMINOTRANSFERASE 34 U/L (15-37); BILIRUBIN,TOTAL 0.5 mg/dL (0.1-1.0); CALCIUM, TOTAL 8.5 mg/dL (8.8-10.5); CARBON DIOXIDE 29 mmol/L (22-29); CHLORIDE 102 mmol/L (98-107); CREATININE 0.89 mg/dL (0.60-1.30); GLOMERULAR FILTR. RATE CALC > 60 mL/min (>60); GLUCOSE,RANDOM 118 mg/dL (70-110); POTASSIUM 3.8 mmol/L (3.5-5.1); SODIUM SERUM 134 mmol/L (136-145); TOTAL PROTEIN, SERUM 6.5 g/dL (6.4-8.2); UREA NITROGEN, BLOOD 38 mg/dL (7-18)
[2021-01-02 07:37] VITALS: BP 131/71
[2021-01-02 08:30] VITALS: BP 130/69
[2021-01-02] MEDS: HEPARIN SODIUM,PORCINE 5,000 UNITS/ML VIAL SQ SCH ×3 (08:50→23:48)
[2021-01-02] MEDS: APIXABAN 5 MG TABLET PO SCH ×2 (08:50→20:51)
[2021-01-02] MEDS: FUROSEMIDE 40 MG TABLET PO SCH ×2 (08:50→20:51)
[2021-01-02] MEDS: ASPIRIN 81 MG DR TABLET PO SCH (08:50)
[2021-01-02] MEDS: METOPROLOL SUCCINATE 50 MG ER TABLET PO SCH (08:50)
[2021-01-02] MEDS: SIMVASTATIN 20 MG TABLET PO SCH (08:50)
[2021-01-02] MEDS: MetFORMIN HCL 500 MG TABLET PO SCH ×2 (08:50→18:15)
[2021-01-02] MEDS: GABAPENTIN 100 MG CAPSULE PO SCH ×2 (08:51→20:58)
[2021-01-02] MEDS: LISINOPRIL 20 MG TABLET PO SCH ×2 (08:51→20:59)
[2021-01-02] MEDS: PredniSONE 20 MG TABLET PO SCH (08:51)
[2021-01-02] MEDS: CLOTRIMAZOLE 1% 15 GM CREAM TP SCH ×2 (08:53→20:59)
[2021-01-02] MEDS: HYDROCODONE/ACETAMINOPHEN 5-325 MG TABLET PO PRN (10:35)
[2021-01-02 11:14] VITALS: BP 113/67
[2021-01-02] MEDS: INSULIN LISPRO 100 UNITS/ML SQ PRN ×3 (12:14→21:00)
[2021-01-02 15:07] VITALS: BP 134/73
[2021-01-02 19:33] VITALS: BP 116/77
[2021-01-03 00:22] VITALS: BP 114/64
[2021-01-03] MEDS: CeFAZolin 2 GM/DEXTROSE 50 ML IV SCH ×3 (03:25→16:44)
[2021-01-03 04:00] VITALS: BP 123/74
[2021-01-03] MEDS: INSULIN LISPRO 100 UNITS/ML SQ PRN ×3 (06:07→17:02)
[2021-01-03 06:54] LABS: BASOPHILS % (AUTO) 0.6 % (0.0-2.0); EOSINOPHILS % (AUTO) 1.3 % (1.0-6.0); HEMATOCRIT 35.7 % (41-53); HEMOGLOBIN 11.9 g/dL (13.5-17.5); LYMPHOCYTES # (AUTO) 1.5 K/uL (1.0-4.8); LYMPHOCYTES % (AUTO) 18.9 % (22.0-44.0); MEAN CORPUSCULAR HEMOGLOBIN 29.3 pg (26.0-34.0); MEAN CORPUSCULAR HGB CONC 33.3 G/dL (31.0-37.0); MEAN CORPUSCULAR VOLUME 88 fL (80-100); MONOCYTES # (AUTO) 0.5 K/uL (0.1-1.0); MONOCYTES % (AUTO) 6.6 % (2.0-9.0); NEUTROPHILS # (AUTO) 5.9 K/uL (1.8-7.7); NEUTROPHILS % (AUTO) 72.6 % (40.0-70.0); PLATELET COUNT (AUTO) 186 K/uL (150-450); RED BLOOD CELL COUNT(AUTO) 4.06 MIL/uL (4.50-5.90); RED CELL DISTRIBUTION WIDTH 14.7 % (11.5-14.5)
[2021-01-03 07:12] VITALS: BP 122/66
[2021-01-03 07:16] LABS: GLUCOMETER DEV NAME(LOC) 5S.1; GLUCOSE,POINT OF CARE 346 MG/DL (70-110)
[2021-01-03 07:22] LABS: ANION GAP 7 mmol/L (8-16); CALCIUM, TOTAL 8.7 mg/dL (8.8-10.5); CARBON DIOXIDE 29 mmol/L (22-29); CHLORIDE 101 mmol/L (98-107); CREATININE 0.84 mg/dL (0.60-1.30); GLOMERULAR FILTR. RATE CALC > 60 mL/min (>60); GLUCOSE,RANDOM 140 mg/dL (70-110); POTASSIUM 3.8 mmol/L (3.5-5.1); SODIUM SERUM 137 mmol/L (136-145); UREA NITROGEN, BLOOD 34 mg/dL (7-18)
[2021-01-03] MEDS: PredniSONE 20 MG TABLET PO SCH (08:30)
[2021-01-03] MEDS: HEPARIN SODIUM,PORCINE 5,000 UNITS/ML VIAL SQ SCH (08:30)
[2021-01-03] MEDS: METOPROLOL SUCCINATE 50 MG ER TABLET PO SCH (08:31)
[2021-01-03] MEDS: MetFORMIN HCL 500 MG TABLET PO SCH ×2 (08:31→16:44)
[2021-01-03] MEDS: GABAPENTIN 100 MG CAPSULE PO SCH (08:31)
[2021-01-03] MEDS: APIXABAN 5 MG TABLET PO SCH (08:31)
[2021-01-03] MEDS: SIMVASTATIN 20 MG TABLET PO SCH (08:31)
[2021-01-03] MEDS: ASPIRIN 81 MG DR TABLET PO SCH (08:32)
[2021-01-03] MEDS: CLOTRIMAZOLE 1% 15 GM CREAM TP SCH (08:32)
[2021-01-03] MEDS: FUROSEMIDE 40 MG TABLET PO SCH (08:32)
[2021-01-03] MEDS: LISINOPRIL 20 MG TABLET PO SCH (08:32)
[2021-01-03 08:48] LABS: GLUCOMETER DEV NAME(LOC) 5S.2B; GLUCOSE,POINT OF CARE 369 MG/DL (70-110)
[2021-01-03 11:08] VITALS: BP 128/72
[2021-01-03] MEDS ORDERED: APIX5TAB PO (15:03)
[2021-01-03] MEDS ORDERED: CLOT15CR29 TP (15:06)
[2021-01-03] MEDS ORDERED: CEFA2PIG IV (15:10)
[2021-01-03] MEDS ORDERED: ACET-784 PO (15:11)
[2021-01-03] MEDS ORDERED: AUD NEB (15:12)
[2021-01-03] MEDS ORDERED: BISA10SU11 PR (15:12)
[2021-01-03] MEDS ORDERED: MOM30 PO (15:13)
[2021-01-03 15:53] VITALS: BP 123/69
[2021-01-03] MEDS ORDERED: HYDR-4061 PO (17:46)
[2021-01-03] MEDS ORDERED: IPRNEB IH (17:48)
[2021-01-03] MEDS ORDERED: INSU100V SQ (17:49)
[2021-01-03] MEDS ORDERED: FAMO20 PO (17:50)
[2021-01-03] MEDS ORDERED: PRED20 PO ×2 (17:51→17:52)
[2021-01-03 18:41] LABS: GLUCOMETER DEV NAME(LOC) 5S.1; GLUCOSE,POINT OF CARE 351 MG/DL (70-110)
[2021-01-03 18:41] LABS: GLUCOMETER DEV NAME(LOC) 5S.1; GLUCOSE,POINT OF CARE 177 MG/DL (70-110)
[2021-01-04 12:04] LABS: GLUCOMETER DEV NAME(LOC) 5N.3; GLUCOSE,POINT OF CARE 198 MG/DL (70-110)
[2021-01-04 12:04] LABS: GLUCOMETER DEV NAME(LOC) 5N.3; GLUCOSE,POINT OF CARE 144 MG/DL (70-110)
== END 2021-01-03 18:25 | DRG 602 ==
LOC: EMS 17:17 → 5S 12-27 03:34
PROVIDERS: ADMIT Hospitalist; ATTEND Hospitalist
DX: L03.116 Cellulitis of left lower limb (principal); I50.41 Acute combined systolic (congestive) and diastolic (congestive) heart failure; I47.2 Ventricular tachycardia; I48.92 Unspecified atrial flutter; R18.8 Other ascites; I42.0 Dilated cardiomyopathy; I25.10 Atherosclerotic heart disease of native coronary artery without angina pectoris; I11.0 Hypertensive heart disease with heart failure; E78.5 Hyperlipidemia, unspecified; E11.9 Type 2 diabetes mellitus without complications; I45.4 Nonspecific intraventricular block; B35.3 Tinea pedis; I25.5 Ischemic cardiomyopathy; Z20.822 Contact with and (suspected) exposure to COVID-19; L03.115 Cellulitis of right lower limb; Z82.49 Family history of ischemic heart disease and other diseases of the circulatory system; Z95.1 Presence of aortocoronary bypass graft; Z95.5 Presence of coronary angioplasty implant and graft
CPT/HCPCS: 73700; 80048; 80053; 82550; 82962; 83605; 83880; 84443; 84484; 85025; 87040; 90686; 90732; 93005; 93306; 99285; G0378; J0690; J1644; J1940; J2405; J2543; J7050

== ENCOUNTER 2021-01-24 19:21 | Emergency (ER) | payer MEDICARE ==
[~2021-01-24] VITALS: Ht 165.1 cm; Wt 65.9 kg
[~2021-01-24 19:21] MED LIST changes: +ACET-784 PO; +APIX5TAB PO; +AUD NEB; +BISA10SU11 PR; +CEFA2PIG IV; -CLOP75TA60 PO; +CLOT15CR29 TP; +FAMO20 PO; +HYDR-4061 PO; +INSU100V SQ; +IPRNEB IH; +MOM30 PO; +PRED20 PO
[2021-01-24] MEDS ORDERED: SODIUM CHLORIDE 0.9% 1,000 ML IV ONE (20:00)
[2021-01-24 20:19] LABS: BASOPHILS % (AUTO) 0.8 % (0.0-2.0); EOSINOPHILS % (AUTO) 1.9 % (1.0-6.0); HEMATOCRIT 37.6 % (41-53); HEMOGLOBIN 12.7 g/dL (13.5-17.5); LYMPHOCYTES # (AUTO) 1.6 K/uL (1.0-4.8); LYMPHOCYTES % (AUTO) 18.6 % (22.0-44.0); MEAN CORPUSCULAR HEMOGLOBIN 29.5 pg (26.0-34.0); MEAN CORPUSCULAR HGB CONC 33.9 G/dL (31.0-37.0); MEAN CORPUSCULAR VOLUME 87 fL (80-100); MONOCYTES # (AUTO) 0.4 K/uL (0.1-1.0); MONOCYTES % (AUTO) 4.7 % (2.0-9.0); NEUTROPHILS # (AUTO) 6.4 K/uL (1.8-7.7); PLATELET COUNT (AUTO) 159 K/uL (150-450); RED BLOOD CELL COUNT(AUTO) 4.32 MIL/uL (4.50-5.90)
[2021-01-24 20:32] LABS: ANION GAP 8 mmol/L (8-16); CALCIUM, TOTAL 9.4 mg/dL (8.8-10.5); CARBON DIOXIDE 29 mmol/L (22-29); CHLORIDE 99 mmol/L (98-107); CREATININE 1.17 mg/dL (0.60-1.30); GLOMERULAR FILTR. RATE CALC > 60 mL/min (>60); GLUCOSE,RANDOM 327 mg/dL (70-110); POTASSIUM 4.6 mmol/L (3.5-5.1); SODIUM SERUM 136 mmol/L (136-145); UREA NITROGEN, BLOOD 46 mg/dL (7-18)
[2021-01-24 20:37] LABS: ALANINE AMINOTRANSFERASE 66 U/L (12-78); ALBUMIN 3.8 g/dL (3.4-5.0); ALKALINE PHOSPHATASE 124 U/L (46-116); ASPARTATE AMINOTRANSFERASE 43 U/L (15-37); BILIRUBIN,TOTAL 0.8 mg/dL (0.1-1.0); TOTAL PROTEIN, SERUM 7.1 g/dL (6.4-8.2)
[2021-01-24 21:11] LABS: GLUCOMETER DEV NAME(LOC) ERT.5; GLUCOSE,POINT OF CARE 283 MG/DL (70-110)
[2021-01-24 21:30] VITALS: BP 145/65
== END 2021-01-24 21:50 | disposition home or self-care (01) ==
LOC: EMS 19:21
DX: E11.65 Type 2 diabetes mellitus with hyperglycemia (principal); I11.0 Hypertensive heart disease with heart failure; I50.9 Heart failure, unspecified; I25.10 Atherosclerotic heart disease of native coronary artery without angina pectoris; Z79.899 Other long term (current) drug therapy; Z79.4 Long term (current) use of insulin
CPT/HCPCS: 80053; 82962; 85025; 96360; 99283; J7030; 36415-L1; 36415-TC

== ENCOUNTER 2022-01-27 13:53 | Emergency (ER) | payer MEDICARE ==
[~2022-01-27] VITALS: Ht 167.6 cm; Wt 72.7 kg
[~2022-01-27 13:53] MED LIST changes: +MAGN-169 PO; -MOM30 PO; +PRED-554 PO; -PRED20 PO
[2022-01-27] MEDS ORDERED: METO25 PO (14:11)
[2022-01-27] MEDS ORDERED: METO-391 PO (14:11)
[2022-01-27] MEDS ORDERED: SIMV-43 PO (14:11)
[2022-01-27] MEDS ORDERED: FURO40TA5 PO (14:11)
[2022-01-27] MEDS ORDERED: FERR325T23 PO (14:11)
[2022-01-27] MEDS ORDERED: METF-446 PO (14:11)
[2022-01-27] MEDS ORDERED: LISI20TA24 PO (14:11)
[2022-01-27] MEDS ORDERED: SEMA3TAB4 PO (14:11)
[2022-01-27] MEDS ORDERED: SODIUM CHLORIDE 0.9% 1,000 ML IV ONE (14:45)
[2022-01-27] MEDS ORDERED: MORPHINE SULFATE 2 MG/ML SYRINGE IVP ONE (14:45)
[2022-01-27 15:02] LABS: BASOPHILS % (AUTO) 1.2 % (0.0-2.0); EOSINOPHILS % (AUTO) 3.6 % (1.0-6.0); HEMATOCRIT 34.9 % (41-53); HEMOGLOBIN 11.5 g/dL (13.5-17.5); LYMPHOCYTES # (AUTO) 1.1 K/uL (1.0-4.8); LYMPHOCYTES % (AUTO) 11.7 % (22.0-44.0); MEAN CORPUSCULAR HEMOGLOBIN 29.1 pg (26.0-34.0); MEAN CORPUSCULAR HGB CONC 32.9 G/dL (31.0-37.0); MEAN CORPUSCULAR VOLUME 88 fL (80-100); MONOCYTES # (AUTO) 0.7 K/uL (0.1-1.0); MONOCYTES % (AUTO) 7.9 % (2.0-9.0); NEUTROPHILS # (AUTO) 6.9 K/uL (1.8-7.7); NEUTROPHILS % (AUTO) 75.6 % (40.0-70.0); PLATELET COUNT (AUTO) 231 K/uL (150-450); RED BLOOD CELL COUNT(AUTO) 3.96 MIL/uL (4.50-5.90); RED CELL DISTRIBUTION WIDTH 15.1 % (11.5-14.5)
[2022-01-27 15:09] LABS: ANION GAP 5 mmol/L (8-16); CALCIUM, TOTAL 9.1 mg/dL (8.8-10.5); CARBON DIOXIDE 30 mmol/L (22-29); CHLORIDE 99 mmol/L (98-107); CREATININE 1.09 mg/dL (0.60-1.30); GLUCOSE,RANDOM 116 mg/dL (70-110); POTASSIUM 4.5 mmol/L (3.5-5.1); SODIUM SERUM 134 mmol/L (136-145); UREA NITROGEN, BLOOD 29 mg/dL (7-18)
[2022-01-27 15:12] LABS: GLOMERULAR FILTR. RATE CALC > 60 mL/min (>60)
[2022-01-27 15:12] LABS: APPEARANCE,URINE CLEAR (CLEAR); BILIRUBIN,URINE NEGATIVE (NEGATIVE); GLUCOSE, URINE (UA) NEGATIVE (NEGATIVE); KETONES,URINE NEGATIVE (NEGATIVE); LEUKOCYTE ESTERASE ,URINE MODERATE (NEGATIVE); NITRATE,URINE NEGATIVE (NEGATIVE); OCCULT BLOOD,URINE NEGATIVE (NEGATIVE); PH,URINE 6.5 (5.0-8.0); PROTEIN,URINE TRACE mg/dL (NEGATIVE); SPECIFIC GRAVITIY, URINE 1.014 (1.003-1.030); UROBILINOGEN,URINE <=1.0 mg/dL (<=1.0)
[2022-01-27 15:15] LABS: ALANINE AMINOTRANSFERASE 20 U/L (12-78); ALBUMIN 3.5 g/dL (3.4-5.0); ALKALINE PHOSPHATASE 190 U/L (46-116); ASPARTATE AMINOTRANSFERASE 23 U/L (15-37); BILIRUBIN,TOTAL 0.5 mg/dL (0.1-1.0); LIPASE 258 U/L (73-393); TOTAL PROTEIN, SERUM 7.3 g/dL (6.4-8.2)
[2022-01-27 15:32] LABS: RBC,URINE None Seen /HPF (0-2)
[2022-01-27 15:33] LABS: BACTERIA,URINE Few /HPF (None Seen)
[2022-01-27] MEDS ORDERED: CEPH-558 PO (16:08)
[2022-01-27 16:21] VITALS: BP 124/71
== END 2022-01-27 16:45 | disposition home or self-care (01) ==
LOC: EMS 14:04
DX: R10.84 Generalized abdominal pain (principal); I48.91 Unspecified atrial fibrillation; R18.8 Other ascites; N39.0 Urinary tract infection, site not specified; I21.9 Acute myocardial infarction, unspecified; I11.0 Hypertensive heart disease with heart failure; I25.10 Atherosclerotic heart disease of native coronary artery without angina pectoris; E11.9 Type 2 diabetes mellitus without complications; Z98.890 Other specified postprocedural states
CPT/HCPCS: 99285; 74176; 96374; 71045; 96361; 80053; 81001; 82962; 83690; 84484; 85025; 36415; 87086; 87186; 93005; J2270; J7030